=== PATIENT | male | born 1995 | race Caucasian/White ===

== ENCOUNTER 2018-11-21 12:40 | Emergency (ER) | payer BC ==
[~2018-11-21] VITALS: Ht 175.3 cm; Wt 67.3 kg
[2018-11-21 13:11] VITALS: BP 145/71
[2018-11-21] MEDS ORDERED: buprenorphine/naloxone 8mg/2mg SL tablet SL STA (13:48)
== END 2018-11-21 14:12 | disposition home or self-care (01) ==
LOC: ER 12:41
DX: F11.20 Opioid dependence, uncomplicated (principal); L98.9 Disorder of the skin and subcutaneous tissue, unspecified; F17.200 Nicotine dependence, unspecified, uncomplicated; F12.90 Cannabis use, unspecified, uncomplicated; F15.90 Other stimulant use, unspecified, uncomplicated; Z56.0 Unemployment, unspecified
CPT/HCPCS: 99282

== ENCOUNTER 2021-10-12 22:52 | Inpatient (IN) | payer MEDICAID ==
[~2021-10-12] VITALS: Ht 172.7 cm; Wt 79.4 kg
[~2021-10-12 22:52] MED LIST: temazepam 15mg capsule PO PRN
[2021-10-12 23:34] LABS: BASOPHILS % (AUTO) 0.1 % (0-1); EOSINOPHILS # (AUTO) 0.1 X10'3 (0-0.9); EOSINOPHILS % (AUTO) 0.7 % (0-6); HEMATOCRIT 35.5 % (42.0-52.0); HEMOGLOBIN 11.7 g/dl (14.0-17.9); LYMPHOCYTES # (AUTO) 1.7 X10'3 (1.1-4.8); MEAN CORPUSCULAR HEMOGLOBIN 27.1 PG (27.0-31.0); MEAN CORPUSCULAR HGB CONC 32.9 g/dL (33.0-36.5); MEAN CORPUSCULAR VOLUME 82.4 FL (78-98); MEAN PLATELET VOLUME 7.9 FL (7.4-10.4); MONOCYTES # (AUTO) 1.7 X10'3 (0-0.9); MONOCYTES % (AUTO) 8.8 % (2-12); NEUTROPHILS # (AUTO) 15.7 X10'3 (1.8-7.7); NEUTROPHILS % (AUTO) 81.4 % (42-75); PLATELET COUNT 273 X10'3 (140-440); RED BLOOD COUNT 4.31 X10'6 (4.70-6.10); RED CELL DISTRIBUTION WIDTH 19.5 % (11.5-14.5); WHITE BLOOD COUNT 19.3 X10'3 (4.5-11.0)
[2021-10-12] MEDS ORDERED: normal saline 1000ML IV soln IV ONE (23:35)
[2021-10-12] MEDS ORDERED: vancomycin/NS 1 GM ADD-VANTAGE 250 ML IV ONE (23:35)
[2021-10-12] MEDS ORDERED: dextrose 5%-1/2 normal saline 1,000 ML IV SCH (23:50)
[2021-10-12] MEDS ORDERED: diphenhydrAMINE 25mg capsule PO PRN (23:50)
[2021-10-12] MEDS ORDERED: diphenhydrAMINE 50 mg/ml inj IV PRN (23:50)
[2021-10-12] MEDS ORDERED: ondansetron 4mg rapidly disintigrating tab PO PRN (23:50)
[2021-10-12] MEDS ORDERED: ondansetron/PF 4mg/2ml inj IV PRN (23:50)
[2021-10-12] MEDS ORDERED: magnesium hydroxide 30ml (MOM) UD suspension PO PRN (23:50)
[2021-10-12] MEDS ORDERED: bisacodyl 10mg suppository rectal RC PRN (23:50)
[2021-10-12] MEDS ORDERED: acetaminophen 650mg rectal suppository RC PRN (23:50)
[2021-10-12] MEDS ORDERED: mag hydrox/Alum hydrox/simeth 30ml oral suspension PO PRN (23:50)
[2021-10-12] MEDS ORDERED: acetaminophen 325mg tablet PO PRN ×2 (23:50)
[2021-10-12] MEDS ORDERED: morphine 2 MG/ML inj. syringe IV PRN (23:50)
[2021-10-12 23:51] LABS: ALANINE AMINOTRANSFERASE 71 U/L (12-78); ALBUMIN 1.7 G/DL (3.4-5.0); ALBUMIN/GLOBULIN RATIO 0.4 (1.1-1.5); ALKALINE PHOSPHATASE 116 IU/L (46-116); ANION GAP 10 (8-16); ASPARTATE AMINO TRANSFERASE 79 U/L (10-37); BILIRUBIN,TOTAL 1.5 MG/DL (0.1-1.0); BLOOD UREA NITROGEN 20 MG/DL (7-18); BUN/CREATININE RATIO 19.8 (5.4-32.0); CALCIUM 7.6 MG/DL (8.5-10.1); CHLORIDE 101 MMOL/L (99-107); CREATININE 1.01 MG/DL (0.60-1.10); GLUCOSE 100 MG/DL (70-104); POTASSIUM 3.6 MMOL/L (3.5-5.1); SODIUM 141 MMOL/L (135-145); TOTAL CARBON DIOXIDE 29.8 MMOL/L (24-32); TOTAL PROTEIN 6.5 G/DL (6.4-8.2); eGFR 89 ML/MIN
[2021-10-13] MEDS ORDERED: nicotine 21mg patch - 24 hr TD ONE (00:05)
[2021-10-13 00:21] LABS: MAGNESIUM 1.6 MG/DL (1.5-2.4); PHOSPHORUS 1.7 MG/DL (2.3-4.5)
[2021-10-13 00:24] LABS: HEMOGLOBIN A1C 6.4 % (4.5-6.2)
[2021-10-13 00:36] LABS: APTT 30 SECONDS (22-32); D-DIMER > 35.20 MG/L FEU (0-0.50)
[2021-10-13] MEDS ORDERED: digoxin 250mcg/ml 2ml ampule IV ONE (00:45)
[2021-10-13] MEDS: DOBUTamine-DoBUTrex 500mg/D5W 250 ML IV SCH (00:45)
[2021-10-13 00:47] LABS: ANISOCYTOSIS 2+; PLATELET ESTIMATE NORMAL
[2021-10-13 00:53] LABS: CHOL/HDL RATIO 5.3 (0.00-4.99); CHOLESTEROL 79 MG/DL (0-200); CREATINE KINASE 72 U/L (39-308); HDL CHOLESTEROL 15 MG/DL (35-60); LDL CHOLESTEROL 49 MG/DL (50-100); LIPASE 479 U/L (73-393); TRIGLYCERIDES 87 MG/DL (20-135)
[2021-10-13 00:58] LABS: ETHANOL < 0.010 GM/DL (0.0-0.010)
[2021-10-13] MEDS: morphine 2 MG/ML inj. syringe IV PRN ×3 (01:14→12:48)
[2021-10-13] MEDS ORDERED: sodium phosphate inj. 30 MMOL in dextrose 5%-water 250 ML IV PRN (01:30)
[2021-10-13] MEDS ORDERED: sodium phosphate inj. 15 MMOL in dextrose 5%-water 250 ML IV PRN (01:30)
[2021-10-13] MEDS ORDERED: Neutra Phos packet PO PRN (01:30)
[2021-10-13] MEDS ORDERED: iohexol 350MG/ML 100ml bottle IV ONE (01:38)
[2021-10-13] MEDS ORDERED: glucagon, human recombinant 1mg kit SUBCUT PRN (02:00)
[2021-10-13] MEDS ORDERED: MESSAGE TO PHARMACY PO ONE (02:00)
[2021-10-13] MEDS ORDERED: dextrose 50%-water 50ml dispensing syringe IV PRN ×2 (02:00)
[2021-10-13] MEDS ORDERED: DEXTROSE 15 GM of carb/4 tabs (each vial/BOTTLE has 4 tablets) PO PRN ×2 (02:00)
[2021-10-13] MEDS ORDERED: insulin Lispro (HumaLOG) vial - multi-dose SQ SCH (02:00)
[2021-10-13 02:41] LABS: ABG BASE EXCESS 2.6 mmol/L (-2.0-2.0); ABG HCO3 24.8 mmol/L (22.0-26.0); ABG OXYGEN SATURATION 95.4 % (94-97); ABG PCO2 (T) 30.7 mmHg (35.0-48.0); ABG PO2 (T) 69.6 mmHg (75.0-100.0); ALLEN'S TEST POSITIVE; FCOHb 1.4 % (0.0-3.9); FMetHb 0.2 % (0.0-1.5); FO2Hb 93.9 % (94-97); PATIENT TEMPERATURE 37.1; TOTAL HEMOGLOBIN 11.2 G/dl (14.0-18.0)
[2021-10-13] MEDS: ipratropium/albuterol 3ml nebule NEB SCH ×6 (02:47→23:09)
[2021-10-13] MEDS ORDERED: NO HOME MEDS (04:52)
[2021-10-13 05:30] VITALS: BP 98/47
[2021-10-13 06:00] VITALS: BP 107/46
[2021-10-13 06:13] LABS: COLOR,URINE YELLOW (Yellow); GLUCOSE, URINE NEGATIVE (Neg); KETONES,URINE NEGATIVE (Neg); LEUKOCYTE ESTERASE ,URINE NEGATIVE (Neg); NITRITES, URINE NEGATIVE (Neg); OCCULT BLOOD,URINE SMALL (Neg); PROTEIN,URINE TRACE mg/dl (Neg)
[2021-10-13 06:17] LABS: CLARITY,URINE SLIGHTLY CLOUDY (Clear); UA COLLECTION TYPE CLN CATCH MIDSTREAM
[2021-10-13 06:22] LABS: BACTERIA,URINE FEW /HPF (Neg); SQUAMOUS EPITHELIAL CELL,UR NONE SEEN /LPF (FEW)
[2021-10-13 06:23] LABS: WBC,URINE 0-4 /HPF (0-4)
[2021-10-13 07:03] LABS: BASOPHILS % (AUTO) 0.2 % (0-1); EOSINOPHILS # (AUTO) 0.1 X10'3 (0-0.9); EOSINOPHILS % (AUTO) 0.5 % (0-6); HEMATOCRIT 31.9 % (42.0-52.0); HEMOGLOBIN 10.2 g/dl (14.0-17.9); LYMPHOCYTES # (AUTO) 1.3 X10'3 (1.1-4.8); LYMPHOCYTES % (AUTO) 7.2 % (21-51); MEAN CORPUSCULAR HEMOGLOBIN 26.5 PG (27.0-31.0); MEAN CORPUSCULAR VOLUME 82.7 FL (78-98); MEAN PLATELET VOLUME 8.1 FL (7.4-10.4); MONOCYTES # (AUTO) 1.6 X10'3 (0-0.9); MONOCYTES % (AUTO) 8.5 % (2-12); NEUTROPHILS # (AUTO) 15.2 X10'3 (1.8-7.7); NEUTROPHILS % (AUTO) 83.6 % (42-75); PLATELET COUNT 231 X10'3 (140-440); RED BLOOD COUNT 3.85 X10'6 (4.70-6.10); RED CELL DISTRIBUTION WIDTH 19.3 % (11.5-14.5); WHITE BLOOD COUNT 18.2 X10'3 (4.5-11.0)
[2021-10-13] MEDS: lisinopril 2.5mg tablet PO SCH (08:00)
[2021-10-13] MEDS ORDERED: vancomycin/NS 1 GM ADD-VANTAGE 250 ML IV SCH (08:00)
[2021-10-13] MEDS: docusate sod 100mg capsule PO SCH ×2 (08:00→20:00)
[2021-10-13] MEDS: furosemide 20 MG/2 ML vial IV SCH ×2 (08:00→21:06)
[2021-10-13] MEDS: heparin, porcine 5000 units/ml vial SQ SCH ×2 (08:00→21:05)
[2021-10-13] MEDS ORDERED: sodium phosphate inj. 15 MMOL in dextrose 5%-water 250 ML IV ONE (08:30)
[2021-10-13 08:38] LABS: PLATELET ESTIMATE NORMAL; POLYCHROMASIA FEW
[2021-10-13 08:39] LABS: ANISOCYTOSIS 2+; ELLIPTOCYTES FEW; HYPOCHROMASIA 1+; STOMATOCYTES FEW; TEAR DROP CELLS FEW
[2021-10-13] MEDS: spironolactone 25 MG tablet PO SCH (10:00)
[2021-10-13] MEDS: carVEDilol 3.125mg tablet PO SCH ×2 (10:02→21:06)
[2021-10-13] MEDS: HYDROcodone/acetaminophen 5mg/325mg tablet PO PRN ×3 (10:02→21:40)
[2021-10-13] MEDS: pantoprazole 40mg Tablet.DR PO SCH (10:02)
--- NOTE | 2021-10-13 10:28 | NUR ---
DM consult re: "new DM". Patient with A1c 6.4%; Diabetes is diagnosed at an A1c of greater than or equal to 6.5% per ADA guidelines. Pt admit for sepsis, PNA, PE, and BLE cellulitis with anasarca and ascites and h/o CHF with EF 20% per H&P. Currently on a regular diet, pending documentation of PO intake. No documented BM though pt receiving routine bowel care. Will continue to follow closely and make recommendations as appropriate pending trends in PO intake. Recommendations: 1) Continue regular diet 2) Monitor need for ONS/additional protein 3) Routine bowel care 4) Weekly scaled weights Addendum: 10/13/21 at [address] Amended: Links added.
[2021-10-13 11:00] VITALS: BP 122/75
[2021-10-13] MEDS: piperacillin/tazo 4.5gm/100ml 100 ML IV SCH ×3 (11:00→16:00)
[2021-10-13] MEDS: VANCOmycin 1250MG/NS 250ml Bag 250 ML IV SCH (13:00)
[2021-10-13 15:00] VITALS: BP 110/50
[2021-10-13 19:00] VITALS: BP 105/45
[2021-10-13 22:00] VITALS: BP 127/74
[2021-10-14] VITALS (16 sets, daily range): BP systolic 109–134; BP diastolic 52–78
[2021-10-14] MEDS: VANCOmycin 1250MG/NS 250ml Bag 250 ML IV SCH (00:40)
[2021-10-14] MEDS: piperacillin/tazo 4.5gm/100ml 100 ML IV SCH ×2 (00:40→09:08)
[2021-10-14] MEDS: morphine 2 MG/ML inj. syringe IV PRN ×2 (01:49→11:25)
[2021-10-14] MEDS: ipratropium/albuterol 3ml nebule NEB SCH ×5 (03:10→19:13)
[2021-10-14] MEDS: HYDROcodone/acetaminophen 5mg/325mg tablet PO PRN (04:23)
[2021-10-14 07:40] LABS: BASOPHILS # (AUTO) 0.1 X10'3 (0-0.2); BASOPHILS % (AUTO) 0.5 % (0-1); EOSINOPHILS # (AUTO) 0.4 X10'3 (0-0.9); EOSINOPHILS % (AUTO) 2.4 % (0-6); HEMATOCRIT 31.4 % (42.0-52.0); HEMOGLOBIN 10.1 g/dl (14.0-17.9); LYMPHOCYTES # (AUTO) 1.2 X10'3 (1.1-4.8); LYMPHOCYTES % (AUTO) 8.2 % (21-51); MEAN CORPUSCULAR HEMOGLOBIN 26.8 PG (27.0-31.0); MEAN CORPUSCULAR HGB CONC 32.1 g/dL (33.0-36.5); MEAN CORPUSCULAR VOLUME 83.6 FL (78-98); MEAN PLATELET VOLUME 7.8 FL (7.4-10.4); MONOCYTES # (AUTO) 1.4 X10'3 (0-0.9); MONOCYTES % (AUTO) 9.2 % (2-12); NEUTROPHILS # (AUTO) 11.8 X10'3 (1.8-7.7); NEUTROPHILS % (AUTO) 79.7 % (42-75); PLATELET COUNT 284 X10'3 (140-440); RED BLOOD COUNT 3.76 X10'6 (4.70-6.10); RED CELL DISTRIBUTION WIDTH 19.7 % (11.5-14.5); WHITE BLOOD COUNT 14.8 X10'3 (4.5-11.0)
[2021-10-14] MEDS: furosemide 20 MG/2 ML vial IV SCH ×2 (09:06→20:33)
[2021-10-14] MEDS: docusate sod 100mg capsule PO SCH ×2 (09:07→20:34)
[2021-10-14] MEDS: spironolactone 25 MG tablet PO SCH (09:07)
[2021-10-14] MEDS: HYDROcodone/acetaminophen 10/325mg tab PO PRN ×2 (09:07→18:50)
[2021-10-14] MEDS: pantoprazole 40mg Tablet.DR PO SCH (09:07)
[2021-10-14] MEDS: heparin, porcine 5000 units/ml vial SQ SCH ×2 (09:07→20:33)
[2021-10-14] MEDS: lisinopril 2.5mg tablet PO SCH (09:08)
[2021-10-14] MEDS: carVEDilol 3.125mg tablet PO SCH ×2 (09:08→20:34)
--- NOTE | 2021-10-14 10:07 | NUR ---
Client's c/o pain is continuous.
[2021-10-14] MEDS ORDERED: VANCOMYCIN LEVEL IV ONE (12:30)
[2021-10-14] MEDS ORDERED: LIDOcaine 1% (10mg/ml)w/preservative inj. 20ml MDV ONE (15:21)
--- NOTE | 2021-10-14 16:28 | NUR ---
Antibiotics delayed due to chest tube placement procedure
--- NOTE | 2021-10-14 17:45 | NUR ---
Mr Palumbo has been assessed as indicated. He has been successfully treated for pain 2x this shift. he has had Bilat chest tubes placed. H tolerated the procedure well. and both are draining SS liquid. He has had visitors at the bedside most of the day and is resting quietly at this time
--- NOTE | 2021-10-14 18:15 | NUR ---
Problems reprioritized. Patient report given, questions answered & plan of care reviewed with KATHIA.
[2021-10-15] VITALS (14 sets, daily range): BP systolic 102–134; BP diastolic 52–81
[2021-10-15] MEDS: ipratropium/albuterol 3ml nebule NEB SCH ×7 (00:16→23:21)
[2021-10-15] MEDS: HYDROcodone/acetaminophen 10/325mg tab PO PRN ×4 (00:44→21:17)
[2021-10-15] MEDS: DOBUTamine-DoBUTrex 500mg/D5W 250 ML IV SCH (00:53)
[2021-10-15] MEDS: piperacillin/tazo 4.5gm/100ml 100 ML IV SCH ×2 (01:09→10:16)
[2021-10-15 06:21] LABS: BASOPHILS # (AUTO) 0.1 X10'3 (0-0.2); BASOPHILS % (AUTO) 0.7 % (0-1); EOSINOPHILS # (AUTO) 0.3 X10'3 (0-0.9); EOSINOPHILS % (AUTO) 2.7 % (0-6); HEMATOCRIT 32.2 % (42.0-52.0); HEMOGLOBIN 10.2 g/dl (14.0-17.9); LYMPHOCYTES # (AUTO) 1.4 X10'3 (1.1-4.8); LYMPHOCYTES % (AUTO) 11.6 % (21-51); MEAN CORPUSCULAR HEMOGLOBIN 26.2 PG (27.0-31.0); MEAN CORPUSCULAR HGB CONC 31.8 g/dL (33.0-36.5); MEAN CORPUSCULAR VOLUME 82.6 FL (78-98); MEAN PLATELET VOLUME 7.5 FL (7.4-10.4); MONOCYTES # (AUTO) 1.4 X10'3 (0-0.9); NEUTROPHILS # (AUTO) 9.1 X10'3 (1.8-7.7); PLATELET COUNT 314 X10'3 (140-440); RED CELL DISTRIBUTION WIDTH 19.3 % (11.5-14.5); WHITE BLOOD COUNT 12.3 X10'3 (4.5-11.0)
[2021-10-15] MEDS: pantoprazole 40mg Tablet.DR PO SCH (08:10)
[2021-10-15] MEDS: docusate sod 100mg capsule PO SCH ×2 (08:11→20:57)
[2021-10-15] MEDS: carVEDilol 3.125mg tablet PO SCH ×2 (08:12→20:57)
[2021-10-15] MEDS: lisinopril 2.5mg tablet PO SCH (08:14)
[2021-10-15] MEDS: spironolactone 25 MG tablet PO SCH (08:16)
[2021-10-15] MEDS: heparin, porcine 5000 units/ml vial SQ SCH ×2 (08:18→20:58)
--- NOTE | 2021-10-15 08:24 | NUR ---
Medication administration supervised by Clinical Machine Baster
[2021-10-15] MEDS: furosemide 20 MG/2 ML vial IV SCH ×2 (10:16→20:57)
[2021-10-15 10:17] LABS: ANISOCYTOSIS 2+; PLATELET ESTIMATE NORMAL
--- NOTE | 2021-10-15 11:38 | NUR ---
Charting byemily SCHWARZ reviewed by Oc Matute RN
--- NOTE | 2021-10-15 11:41 | NUR ---
Patient states BM yesterday 10/14/21. Not observed by me.
--- NOTE | 2021-10-15 11:51 | NUR ---
RECOMMEND: 1. Daily bathing with no rinse skin cleanser. 2. Cream/Lotion to be applied to skin after bathing. 3. Yoko care Q shift and prn soiling followed by with Barrier Cream. 4. Turn patient Q 1-2 hrs and reposition with pillows. 5. Float heels to offload pressure.
--- NOTE | 2021-10-15 13:00 | NUR ---
Met with patient in regards to substance use and to see if patient wanted treatment options. Patient would like to get established with [facility] and get started on outpatient treatment. I will help patient get appointment and I gave patient my card to call me with any questions.
[2021-10-15] MEDS: CefTRIAXone 2gm/NS 100ml IVPB 100 ML IV SCH (14:39)
[2021-10-15] MEDS: mupirocin 2% ointment 22GM TP SCH (16:47)
[2021-10-15] MEDS: morphine 2 MG/ML inj. syringe IV PRN (16:48)
--- NOTE | 2021-10-15 16:52 | NUR ---
Charting by Kaila SCHWARZ reviewed by Oc Matute RN
--- NOTE | 2021-10-15 17:24 | NUR ---
Patient stated his last bowel movement was on 10/14/21, this was not witnessed by me.
--- NOTE | 2021-10-15 18:26 | NUR ---
Mr Palumbo has been assessed as indicated. he has been successfully treated for pain several times this shift. his mother has been at the bedside the entire shift. Bilat chest tubes drain serous fluids and have been flushed by IR staff with 10ml each. all wounds have been dressed per wound nurse orders. Newly ordered antibiotics have been started. He states that he would like to wash himself up before bed tonight. He is presently resting quietly
--- NOTE | 2021-10-15 18:49 | NUR ---
Problems reprioritized. Patient report given, questions answered & plan of care reviewed with JENNIFER.
--- NOTE | 2021-10-15 23:59 | NUR ---
Patient in room PCU 3012. I have received report from Bren DUARTE, and had the opportunity to ask questions and assume patient care.
[2021-10-16] MEDS: morphine 2 MG/ML inj. syringe IV PRN ×4 (01:04→18:20)
[2021-10-16] MEDS ORDERED: VANCOMYCIN LEVEL IV ONE (02:30)
[2021-10-16 02:54] LABS: BASOPHILS # (AUTO) 0.2 X10'3 (0-0.2); BASOPHILS % (AUTO) 1.2 % (0-1); EOSINOPHILS # (AUTO) 0.3 X10'3 (0-0.9); EOSINOPHILS % (AUTO) 2.2 % (0-6); HEMATOCRIT 31.4 % (42.0-52.0); HEMOGLOBIN 10.3 g/dl (14.0-17.9); LYMPHOCYTES # (AUTO) 1.8 X10'3 (1.1-4.8); LYMPHOCYTES % (AUTO) 13.4 % (21-51); MEAN CORPUSCULAR HEMOGLOBIN 27.1 PG (27.0-31.0); MEAN CORPUSCULAR HGB CONC 32.7 g/dL (33.0-36.5); MEAN CORPUSCULAR VOLUME 82.9 FL (78-98); MONOCYTES # (AUTO) 1.2 X10'3 (0-0.9); MONOCYTES % (AUTO) 9.4 % (2-12); NEUTROPHILS # (AUTO) 9.8 X10'3 (1.8-7.7); NEUTROPHILS % (AUTO) 73.8 % (42-75); PLATELET COUNT 404 X10'3 (140-440); RED BLOOD COUNT 3.79 X10'6 (4.70-6.10); RED CELL DISTRIBUTION WIDTH 18.9 % (11.5-14.5); WHITE BLOOD COUNT 13.2 X10'3 (4.5-11.0)
[2021-10-16] MEDS: ipratropium/albuterol 3ml nebule NEB SCH ×6 (02:58→23:32)
[2021-10-16 03:43] LABS: HIV ANTIBODY 1&2 RAPID NON-REACTIVE (Neg)
--- NOTE | 2021-10-16 04:00 | NUR ---
Patient with ST at 130 to 140 HR inform MD and Dobutamin drip decrease to 2.5 ml ,R 32 pain med admins , continue to monitor pt. mica level 20 md notify.
[2021-10-16 04:01] LABS: ANISOCYTOSIS 2+; PLATELET ESTIMATE NORMAL
[2021-10-16 04:02] LABS: TARGET CELLS FEW
[2021-10-16 04:03] LABS: HYPOCHROMASIA 1+; TEAR DROP CELLS FEW
[2021-10-16 04:04] LABS: STOMATOCYTES FEW
[2021-10-16] MEDS: HYDROcodone/acetaminophen 10/325mg tab PO PRN ×3 (04:24→17:23)
[2021-10-16 06:00] VITALS: BP 121/81
--- NOTE | 2021-10-16 06:10 | NUR ---
Patient in room PCU 3012. I have received report from Vy DUARTE and had the opportunity to ask questions and assume patient care.
--- NOTE | 2021-10-16 06:35 | NUR ---
Problems reprioritized. Patient report given,to Sara, questions answered & plan of care reviewed with .
[2021-10-16 06:43] LABS: BLOOD UREA NITROGEN 16 MG/DL (7-18); CREATININE 0.95 MG/DL (0.60-1.10); eGFR > 90 ML/MIN
[2021-10-16] MEDS: furosemide 20 MG/2 ML vial IV SCH ×2 (08:53→19:16)
[2021-10-16] MEDS: heparin, porcine 5000 units/ml vial SQ SCH ×2 (08:53→19:17)
[2021-10-16] MEDS: mupirocin 2% ointment 22GM TP SCH (08:54)
[2021-10-16] MEDS: spironolactone 25 MG tablet PO SCH (08:56)
[2021-10-16] MEDS: docusate sod 100mg capsule PO SCH ×2 (08:56→19:17)
[2021-10-16] MEDS: carVEDilol 3.125mg tablet PO SCH ×2 (08:57→19:17)
[2021-10-16] MEDS: lisinopril 2.5mg tablet PO SCH (08:57)
[2021-10-16] MEDS: pantoprazole 40mg Tablet.DR PO SCH (09:00)
[2021-10-16] MEDS: CefTRIAXone 2gm/NS 100ml IVPB 100 ML IV SCH (10:02)
[2021-10-16] MEDS ORDERED: tPA-cathflo 2 MG/2 ml IV flush ONE ×2 (10:20→10:21)
[2021-10-16 10:54] LABS: ALBUMIN 1.4 G/DL (3.4-5.0); ANION GAP 8 (8-16); BLOOD UREA NITROGEN 16 MG/DL (7-18); BUN/CREATININE RATIO 18.8 (5.4-32.0); CALCIUM 7.7 MG/DL (8.5-10.1); CHLORIDE 102 MMOL/L (99-107); CREATININE 0.85 MG/DL (0.60-1.10); GLUCOSE 111 MG/DL (70-104); POTASSIUM 3.9 MMOL/L (3.5-5.1); SODIUM 139 MMOL/L (135-145); eGFR > 90 ML/MIN
[2021-10-16 11:00] VITALS: BP 113/54
--- NOTE | 2021-10-16 12:03 | NUR ---
Reassessment: Pt continues on Regular diet w/ 100% intake of meals which meets est energy needs but only partially meets est protein needs. Pt could benefit from double protein BID to ensure increased protein needs are met. LBM 10/14 receiving routine colace. Will continue to monitor and make recommendations as appropriate. Recommendations: 1) Continue regular diet 2) Double Protein BID BD 3) Routine bowel care 4) Weekly scaled weights Addendum: 10/16/21 at [address] Amended: Links added.
[2021-10-16 15:00] VITALS: BP 115/78
--- NOTE | 2021-10-16 15:25 | NUR ---
Paged Dr. Chappell regarding pt in pain and needing a one time dose of something. PAGER ID: [phone] MESSAGE: [phone], Linwood Martínez. Pt is in a lot of pain from the TPA. Can we get a one time order for IV pain med? I gave him morphine 2mg 2 hours ago, but he is still in excruciating pain. Isabella [facility] 5356.
[2021-10-16] MEDS ORDERED: morphine 2 MG/ML inj. syringe IV ONE (15:30)
--- NOTE | 2021-10-16 15:55 | NUR ---
1500 svn refused due to pain
--- NOTE | 2021-10-16 16:36 | NUR ---
Pt was caught vaping in his room this morning by nursing staff. I confiscated 2 vapes, the pts family said they would hold on to them and not give them to him. He was then caught again later by respiratory, I went in and told the pt I knew he had them and that I needed to take them and put them away where he couldn't have access to them. He agreed to let me look through his bags, and I found one of them. I said I knew he had the other one still and he denied it. I asked him if I could look in his shorts he was wearing and he said no. I then talked to my charge and nursing unit coordinator and they called security. Security talked to him and he denied having another vape. We then all went in and told the patient we were going to check the pt, that it is illegal to have it in the hospital and he reluctantly agreed. We then found it in his bed and removed it from the room and placed them both in his chart.
--- NOTE | 2021-10-16 17:27 | NUR ---
Paged Dr. Chappell regarding HR trending up in the 130-140s. PAGER ID: [phone] MESSAGE: [id number], Linwood Martínez. Pts HR is trending up. Starting at 1500 it was 130, it is now 140. Before 3pm it was less than 120. Isabella [facility] [id number].
[2021-10-16] MEDS ORDERED: metoprolol tartrate 1mg/ml inj IV ONE (17:30)
[2021-10-16 18:00] VITALS: BP 146/86
--- NOTE | 2021-10-16 18:10 | NUR ---
Problems reprioritized. Patient report given, questions answered & plan of care reviewed with Angela DUARTE, pt stable but in a lot of pain, wants chest tubes removed as soon as possible..
--- NOTE | 2021-10-16 18:44 | NUR ---
PAGER ID: [phone] MESSAGE: [phone], Linwood Martínez. Pt wants to leave AMA if the chest tubes don't come out. He says he cant stand the pain any longer. He wants to have a conversation with you before you leave. Angela [facility] 8012.
--- NOTE | 2021-10-16 18:58 | NUR ---
MD Chappell called and spoke with patient via telephone regarding his c/o pain r/t his bilateral chest tubes. gave orders to start .5 mg Dilaudid IV PRN Q4H for pain. Patient is in agreement with the plan at this time.
[2021-10-16] MEDS: HYDROmorphone inj. 0.5 MG/0.5 ML DISP.SYRIN IV PRN (19:22)
[2021-10-17] MEDS: HYDROmorphone inj. 0.5 MG/0.5 ML DISP.SYRIN IV PRN ×6 (01:18→23:21)
[2021-10-17 02:26] VITALS: BP 105/46
[2021-10-17] MEDS: ipratropium/albuterol 3ml nebule NEB SCH ×6 (02:35→23:42)
[2021-10-17] MEDS: HYDROcodone/acetaminophen 10/325mg tab PO PRN ×2 (04:31→19:11)
[2021-10-17 06:00] VITALS: BP 116/71
--- NOTE | 2021-10-17 06:21 | NUR ---
Patient in room PCU 3012. I have received report from Mariana DUARTE and had the opportunity to ask questions and assume patient care.
[2021-10-17 06:43] LABS: BASOPHILS # (AUTO) 0.1 X10'3 (0-0.2); BASOPHILS % (AUTO) 0.7 % (0-1); EOSINOPHILS # (AUTO) 0.2 X10'3 (0-0.9); EOSINOPHILS % (AUTO) 1.3 % (0-6); HEMATOCRIT 30.7 % (42.0-52.0); HEMOGLOBIN 9.9 g/dl (14.0-17.9); LYMPHOCYTES # (AUTO) 1.5 X10'3 (1.1-4.8); LYMPHOCYTES % (AUTO) 10.5 % (21-51); MEAN CORPUSCULAR HEMOGLOBIN 26.8 PG (27.0-31.0); MEAN CORPUSCULAR HGB CONC 32.4 g/dL (33.0-36.5); MEAN CORPUSCULAR VOLUME 82.6 FL (78-98); MEAN PLATELET VOLUME 7.5 FL (7.4-10.4); MONOCYTES # (AUTO) 1.8 X10'3 (0-0.9); MONOCYTES % (AUTO) 12.4 % (2-12); NEUTROPHILS # (AUTO) 11.1 X10'3 (1.8-7.7); NEUTROPHILS % (AUTO) 75.1 % (42-75); PLATELET COUNT 419 X10'3 (140-440); RED BLOOD COUNT 3.72 X10'6 (4.70-6.10); RED CELL DISTRIBUTION WIDTH 18.9 % (11.5-14.5); WHITE BLOOD COUNT 14.8 X10'3 (4.5-11.0)
[2021-10-17 06:54] LABS: ALBUMIN 1.3 G/DL (3.4-5.0); ANION GAP 6 (8-16); BLOOD UREA NITROGEN 16 MG/DL (7-18); BUN/CREATININE RATIO 21.9 (5.4-32.0); CALCIUM 7.4 MG/DL (8.5-10.1); CHLORIDE 103 MMOL/L (99-107); CREATININE 0.73 MG/DL (0.60-1.10); GLUCOSE 96 MG/DL (70-104); POTASSIUM 4.1 MMOL/L (3.5-5.1); SODIUM 136 MMOL/L (135-145); TOTAL CARBON DIOXIDE 26.6 MMOL/L (24-32); eGFR > 90 ML/MIN
[2021-10-17] MEDS: CefTRIAXone 2gm/NS 100ml IVPB 100 ML IV SCH (07:56)
[2021-10-17] MEDS: spironolactone 25 MG tablet PO SCH (07:57)
[2021-10-17] MEDS: lisinopril 2.5mg tablet PO SCH (07:58)
[2021-10-17] MEDS: docusate sod 100mg capsule PO SCH ×2 (07:59→19:11)
[2021-10-17] MEDS: pantoprazole 40mg Tablet.DR PO SCH (07:59)
[2021-10-17] MEDS: carVEDilol 3.125mg tablet PO SCH (07:59)
[2021-10-17] MEDS: furosemide 20 MG/2 ML vial IV SCH ×2 (07:59→19:10)
[2021-10-17] MEDS: heparin, porcine 5000 units/ml vial SQ SCH ×2 (08:00→19:11)
[2021-10-17] MEDS: mupirocin 2% ointment 22GM TP SCH (08:01)
[2021-10-17 11:00] VITALS: BP 113/61
--- NOTE | 2021-10-17 12:04 | NUR ---
Paged Dr. Chappell regarding whether we can get some ativan ordered for the patient. PAGER ID: [phone] MESSAGE: [phone], Linwood Martínez. Pt doesn't have any Ativan ordered, would you like to add some? Isabella [facility] 4736.
[2021-10-17] MEDS: morphine 2 MG/ML inj. syringe IV PRN (13:38)
[2021-10-17] MEDS ORDERED: chlorhexidine gluc 0.4% **topical ** 120ml btl. TP ONE (14:25)
[2021-10-17] MEDS ORDERED: LORazepam 2 mg/ml vial IV PRN (14:55)
[2021-10-17 15:00] VITALS: BP 116/73
[2021-10-17 18:00] VITALS: BP 101/56
--- NOTE | 2021-10-17 18:23 | NUR ---
Problems reprioritized. Patient report given, questions answered & plan of care reviewed with Nora RN, pt stable at transfer of care.
[2021-10-17] MEDS: carvedilol 6.25mg tablet PO SCH (19:11)
[2021-10-17 22:00] VITALS: BP 107/59
[2021-10-18 02:00] VITALS: BP 110/62
[2021-10-18] MEDS ORDERED: VANCOMYCIN LEVEL IV ONE (02:30)
[2021-10-18] MEDS: HYDROmorphone inj. 0.5 MG/0.5 ML DISP.SYRIN IV PRN ×2 (03:02→07:51)
[2021-10-18] MEDS: ipratropium/albuterol 3ml nebule NEB SCH ×3 (03:50→11:00)
--- NOTE | 2021-10-18 06:59 | NUR ---
Problems reprioritized. Patient report given, questions answered & plan of care reviewed with Bren DUARTE .
[2021-10-18 07:49] LABS: ALBUMIN 1.4 G/DL (3.4-5.0); ANION GAP 9 (8-16); BLOOD UREA NITROGEN 16 MG/DL (7-18); CALCIUM 8.3 MG/DL (8.5-10.1); CHLORIDE 102 MMOL/L (99-107); CREATININE 0.84 MG/DL (0.60-1.10); GLUCOSE 111 MG/DL (70-104); POTASSIUM 4.8 MMOL/L (3.5-5.1); SODIUM 139 MMOL/L (135-145); TOTAL CARBON DIOXIDE 27.6 MMOL/L (24-32); eGFR > 90 ML/MIN
[2021-10-18] MEDS: CefTRIAXone 2gm/NS 100ml IVPB 100 ML IV SCH (07:51)
[2021-10-18] MEDS: heparin, porcine 5000 units/ml vial SQ SCH (07:52)
[2021-10-18] MEDS: furosemide 20 MG/2 ML vial IV SCH (07:52)
[2021-10-18] MEDS: spironolactone 25 MG tablet PO SCH (07:53)
[2021-10-18 07:54] VITALS: BP_SYST 108
[2021-10-18] MEDS: lisinopril 2.5mg tablet PO SCH (07:54)
[2021-10-18] MEDS: pantoprazole 40mg Tablet.DR PO SCH (07:54)
[2021-10-18] MEDS: mupirocin 2% ointment 22GM TP SCH (08:00)
[2021-10-18] MEDS: carvedilol 6.25mg tablet PO SCH (08:00)
[2021-10-18] MEDS: docusate sod 100mg capsule PO SCH (08:00)
[2021-10-18 09:16] LABS: BASOPHILS # (AUTO) 0.1 X10'3 (0-0.2); BASOPHILS % (AUTO) 0.9 % (0-1); EOSINOPHILS # (AUTO) 0.2 X10'3 (0-0.9); EOSINOPHILS % (AUTO) 1.7 % (0-6); HEMATOCRIT 29.9 % (42.0-52.0); HEMOGLOBIN 9.5 g/dl (14.0-17.9); LYMPHOCYTES # (AUTO) 1.4 X10'3 (1.1-4.8); LYMPHOCYTES % (AUTO) 10.1 % (21-51); MEAN CORPUSCULAR HEMOGLOBIN 26.5 PG (27.0-31.0); MEAN CORPUSCULAR HGB CONC 31.9 g/dL (33.0-36.5); MEAN CORPUSCULAR VOLUME 83.1 FL (78-98); MEAN PLATELET VOLUME 8.1 FL (7.4-10.4); MONOCYTES # (AUTO) 1.3 X10'3 (0-0.9); MONOCYTES % (AUTO) 9.8 % (2-12); NEUTROPHILS # (AUTO) 10.6 X10'3 (1.8-7.7); NEUTROPHILS % (AUTO) 77.5 % (42-75); PLATELET COUNT 385 X10'3 (140-440); RED CELL DISTRIBUTION WIDTH 19.2 % (11.5-14.5); WHITE BLOOD COUNT 13.7 X10'3 (4.5-11.0)
[2021-10-18 09:44] LABS: ANISOCYTOSIS 2+; MICROCYTOSIS 1+; PLATELET ESTIMATE NORMAL; POIKILOCYTOSIS FEW; TARGET CELLS FEW
[2021-10-18] MEDS ORDERED: PANT40TA54 PO (09:47)
[2021-10-18] MEDS ORDERED: DOXY100C2 PO (09:47)
[2021-10-18] MEDS ORDERED: CARV6.253 PO (09:47)
[2021-10-18] MEDS ORDERED: POTA10TA37 PO (09:47)
[2021-10-18] MEDS ORDERED: FURO40TA4 PO (09:47)
[2021-10-18] MEDS ORDERED: LISI2.5T14 PO (09:47)
--- NOTE | 2021-10-18 11:56 | NUR ---
Patient IV was removed and intact and went over discharge packet answered all questions pertaining to medications.
== END 2021-10-18 11:00 | disposition home or self-care (01) | DRG 720 ==
LOC: ER 22:52 → ED HOLD 23:57 → EDBEDREQ 10-13 00:55 → EDBEDREQSVC 10-13 03:28 → PCU 3S 10-13 05:14
PROVIDERS: ADMIT Family Medicine; ATTEND Internal Medicine
PROC: B32T1ZZ Computerized Tomography (CT Scan) of Left Pulmonary Artery using Low Osmolar Contrast (ICD-10-PCS; 2021-10-13)
PROC: B3201ZZ Computerized Tomography (CT Scan) of Thoracic Aorta using Low Osmolar Contrast (ICD-10-PCS; 2021-10-13)
PROC: B32S1ZZ Computerized Tomography (CT Scan) of Right Pulmonary Artery using Low Osmolar Contrast (ICD-10-PCS; 2021-10-13)
PROC: 0W9B30Z Drainage of Left Pleural Cavity with Drainage Device, Percutaneous Approach (ICD-10-PCS; principal; 2021-10-14)
PROC: 0W9930Z Drainage of Right Pleural Cavity with Drainage Device, Percutaneous Approach (ICD-10-PCS; 2021-10-14)
PROC: 5A0935A Assistance with Respiratory Ventilation, Less than 24 Consecutive Hours, High Flow/Velocity Cannula (ICD-10-PCS; 2021-10-14)
PROC: 3E0L3GC Introduction of Other Therapeutic Substance into Pleural Cavity, Percutaneous Approach (ICD-10-PCS; 2021-10-16)
DX: A41.9 Sepsis, unspecified organism (principal); J86.9 Pyothorax without fistula; I50.23 Acute on chronic systolic (congestive) heart failure; J91.8 Pleural effusion in other conditions classified elsewhere; I42.9 Cardiomyopathy, unspecified; J18.9 Pneumonia, unspecified organism; R18.8 Other ascites; E88.09 Other disorders of plasma-protein metabolism, not elsewhere classified; D63.8 Anemia in other chronic diseases classified elsewhere; E83.39 Other disorders of phosphorus metabolism; Z20.822 Contact with and (suspected) exposure to COVID-19; F41.9 Anxiety disorder, unspecified; G89.29 Other chronic pain; L03.115 Cellulitis of right lower limb; L03.116 Cellulitis of left lower limb; F11.10 Opioid abuse, uncomplicated; F12.90 Cannabis use, unspecified, uncomplicated; F15.10 Other stimulant abuse, uncomplicated; F17.210 Nicotine dependence, cigarettes, uncomplicated; L30.9 Dermatitis, unspecified; Z56.0 Unemployment, unspecified; Z71.6 Tobacco abuse counseling; Z71.51 Drug abuse counseling and surveillance of drug abuser
CPT/HCPCS: 32557; 36415; 36600; 71045; 71250; 71275; 73700; 80048; 80053; 80061; 80202; 80320; 81001; 82550; 82565; 82803; 82948; 83036; 83605; 83690; 83735; 83880; 84100; 84145; 84443; 84484; 84520; 85008; 85018; 85025; 85379; 85610; 85730; 86703; 87040; 87081; 87635; 93306; 93970; 94640; 94760; 96374; 99285; G0378; J0696; J1160; J1170; J1250; J1644; J1815; J1940; J2060; J2270; J2543; J2997; J3370; J3490; J7030; J7060; Q9967

== ENCOUNTER 2021-11-19 12:25 | Inpatient (IN) | payer BC, MEDICAID ==
[~2021-11-19] VITALS: Ht 175.3 cm; Wt 86.4 kg
[~2021-11-19 12:25] MED LIST changes: +CARV6.253 PO; +LISI2.5T14 PO; +PANT40TA54 PO; +POTA10TA37 PO; -temazepam 15mg capsule PO PRN
[2021-11-19 14:04] LABS: BASOPHILS % (AUTO) 0.2 % (0-1); EOSINOPHILS # (AUTO) 0.3 X10'3 (0-0.9); EOSINOPHILS % (AUTO) 1.5 % (0-6); HEMATOCRIT 31.5 % (42.0-52.0); HEMOGLOBIN 9.8 g/dl (14.0-17.9); LYMPHOCYTES # (AUTO) 1.3 X10'3 (1.1-4.8); LYMPHOCYTES % (AUTO) 6.5 % (21-51); MEAN CORPUSCULAR HEMOGLOBIN 27.1 PG (27.0-31.0); MEAN CORPUSCULAR HGB CONC 31.3 g/dL (33.0-36.5); MEAN CORPUSCULAR VOLUME 86.6 FL (78-98); MEAN PLATELET VOLUME 7.8 FL (7.4-10.4); MONOCYTES # (AUTO) 0.7 X10'3 (0-0.9); MONOCYTES % (AUTO) 3.3 % (2-12); NEUTROPHILS # (AUTO) 17.8 X10'3 (1.8-7.7); NEUTROPHILS % (AUTO) 88.5 % (42-75); PLATELET COUNT 158 X10'3 (140-440); RED BLOOD COUNT 3.63 X10'6 (4.70-6.10); RED CELL DISTRIBUTION WIDTH 23.9 % (11.5-14.5); WHITE BLOOD COUNT 20.1 X10'3 (4.5-11.0)
[2021-11-19 14:12] LABS: ALANINE AMINOTRANSFERASE 230 U/L (12-78); ALBUMIN 1.6 G/DL (3.4-5.0); ALBUMIN/GLOBULIN RATIO 0.3 (1.1-1.5); ALKALINE PHOSPHATASE 145 IU/L (46-116); ANION GAP 5 (8-16); ASPARTATE AMINO TRANSFERASE 101 U/L (10-37); BILIRUBIN,TOTAL 2.1 MG/DL (0.1-1.0); BLOOD UREA NITROGEN 42 MG/DL (7-18); BUN/CREATININE RATIO 31.6 (5.4-32.0); CALCIUM 7.8 MG/DL (8.5-10.1); CHLORIDE 99 MMOL/L (99-107); CREATININE 1.33 MG/DL (0.60-1.10); GLUCOSE 105 MG/DL (70-104); POTASSIUM 4.6 MMOL/L (3.5-5.1); SODIUM 133 MMOL/L (135-145); TOTAL CARBON DIOXIDE 29.2 MMOL/L (24-32); TOTAL PROTEIN 6.8 G/DL (6.4-8.2); eGFR 65 ML/MIN
[2021-11-19 14:23] LABS: ANISOCYTOSIS 3+; PLATELET ESTIMATE NORMAL
[2021-11-19] MEDS ORDERED: furosemide 10 MG/1 ML 10ml inj IV ONE (15:55)
[2021-11-19] MEDS ORDERED: cefTRIAXone 1g/NS 100ml IVPB 100 ML IV ONE (15:55)
[2021-11-19] MEDS ORDERED: vancomycin/NS 1 GM ADD-VANTAGE 250 ML IV ONE (16:05)
[2021-11-19] MEDS ORDERED: mag hydrox/Alum hydrox/simeth 30ml oral suspension PO PRN (17:10)
[2021-11-19] MEDS ORDERED: magnesium 2GM in 50ml NS 50 ML IV PRN (17:10)
[2021-11-19] MEDS ORDERED: potassium CL 10mEq/100ml bag 100 ML IV PRN (17:10)
[2021-11-19] MEDS ORDERED: magnesium hydroxide 30ml (MOM) UD suspension PO PRN (17:10)
[2021-11-19] MEDS ORDERED: magnesium Cl slow-release 64mg tablet PO PRN (17:10)
[2021-11-19] MEDS ORDERED: potassium Cl 20 mEq SR tablet PO PRN (17:10)
[2021-11-19] MEDS ORDERED: magnesium 4gm in 100ml NS 100 ML IV PRN (17:10)
[2021-11-19] MEDS ORDERED: ondansetron/PF 4mg/2ml inj IV PRN (17:10)
[2021-11-19] MEDS ORDERED: acetaminophen 325mg tablet PO PRN (17:10)
[2021-11-19 17:30] LABS: POTASSIUM 4.6 MMOL/L (3.5-5.1)
[2021-11-19 17:49] LABS: URINE AMPHETAMINE SCREEN NEGATIVE (Neg); URINE BARBITUATE SCREEN NEGATIVE (Neg); URINE BENZODIAZEPINES SCREEN NEGATIVE (Neg); URINE CANNABINOID SCREEN POSITIVE (Neg); URINE COCAINE SCREEN NEGATIVE (Neg); URINE METHADONE SCREEN POSITIVE (Neg); URINE OPIATE SCREEN NEGATIVE (Neg); URINE PHENCYCLIDINE SCREEN NEGATIVE (Neg)
[2021-11-19] MEDS ORDERED: FURO40TA4 PO (18:10)
[2021-11-19] MEDS ORDERED: POTA-205 PO (18:17)
[2021-11-19] MEDS ORDERED: PANT-47 PO (18:17)
[2021-11-19] MEDS ORDERED: CARV6.253 PO (18:17)
[2021-11-19] MEDS ORDERED: LISI2.5T14 PO (18:17)
[2021-11-19] MEDS: K and/or MAG REPLACEMENT MC SCH (19:04)
[2021-11-19] MEDS ORDERED: POTA-188 PO (19:44)
[2021-11-19] MEDS: furosemide 40mg/4ml inj IV SCH (20:19)
[2021-11-19] MEDS: carvedilol 6.25mg tablet PO SCH (20:20)
[2021-11-19] MEDS: docusate sod 100mg capsule PO SCH (20:20)
[2021-11-19 22:00] VITALS: BP 113/66
[2021-11-19 22:36] VITALS: BP 110/65
[2021-11-19] MEDS: cefepime 1GM/NS ADD-VANTAGE 100 ML IV SCH (23:36)
[2021-11-20 02:00] VITALS: BP 102/48
[2021-11-20] MEDS: vancomycin/NS 1 GM ADD-VANTAGE 250 ML IV SCH ×2 (03:44→16:00)
[2021-11-20 05:45] LABS: BASOPHILS % (AUTO) 0.1 % (0-1); EOSINOPHILS # (AUTO) 0.1 X10'3 (0-0.9); EOSINOPHILS % (AUTO) 0.7 % (0-6); HEMATOCRIT 26.6 % (42.0-52.0); HEMOGLOBIN 8.5 g/dl (14.0-17.9); LYMPHOCYTES # (AUTO) 1.1 X10'3 (1.1-4.8); LYMPHOCYTES % (AUTO) 5.9 % (21-51); MEAN CORPUSCULAR HEMOGLOBIN 26.9 PG (27.0-31.0); MEAN PLATELET VOLUME 7.8 FL (7.4-10.4); MONOCYTES # (AUTO) 0.5 X10'3 (0-0.9); MONOCYTES % (AUTO) 2.9 % (2-12); NEUTROPHILS # (AUTO) 16.7 X10'3 (1.8-7.7); NEUTROPHILS % (AUTO) 90.4 % (42-75); PLATELET COUNT 125 X10'3 (140-440); RED BLOOD COUNT 3.17 X10'6 (4.70-6.10); RED CELL DISTRIBUTION WIDTH 23.8 % (11.5-14.5); WHITE BLOOD COUNT 18.4 X10'3 (4.5-11.0)
[2021-11-20 06:00] VITALS: BP 102/39
[2021-11-20 06:12] LABS: ALANINE AMINOTRANSFERASE 182 U/L (12-78); ALBUMIN 1.4 G/DL (3.4-5.0); ALBUMIN/GLOBULIN RATIO 0.3 (1.1-1.5); ALKALINE PHOSPHATASE 165 IU/L (46-116); ANION GAP 8 (8-16); ASPARTATE AMINO TRANSFERASE 80 U/L (10-37); BILIRUBIN,TOTAL 2.4 MG/DL (0.1-1.0); BLOOD UREA NITROGEN 33 MG/DL (7-18); BUN/CREATININE RATIO 26.8 (5.4-32.0); CALCIUM 7.2 MG/DL (8.5-10.1); CHLORIDE 100 MMOL/L (99-107); CREATININE 1.23 MG/DL (0.60-1.10); GLUCOSE 86 MG/DL (70-104); POTASSIUM 3.2 MMOL/L (3.5-5.1); SODIUM 137 MMOL/L (135-145); TOTAL CARBON DIOXIDE 29.3 MMOL/L (24-32); eGFR 71 ML/MIN
[2021-11-20] MEDS: K and/or MAG REPLACEMENT MC SCH ×2 (08:00→20:00)
[2021-11-20] MEDS: cefepime 1GM/NS ADD-VANTAGE 100 ML IV SCH ×2 (08:38→15:57)
[2021-11-20] MEDS: furosemide 40mg/4ml inj IV SCH ×2 (08:38→20:19)
[2021-11-20] MEDS: potassium chloride 10mEq ER tablet PO SCH (08:39)
[2021-11-20] MEDS: enoxaparin 40mg/0.4ml syringe SUBCUT SCH (08:39)
[2021-11-20] MEDS: lisinopril 2.5mg tablet PO SCH (08:39)
[2021-11-20] MEDS: carvedilol 6.25mg tablet PO SCH ×2 (08:39→20:20)
[2021-11-20] MEDS: docusate sod 100mg capsule PO SCH ×2 (08:39→20:20)
[2021-11-20] MEDS: pantoprazole 40mg Tablet.DR PO SCH (08:40)
--- NOTE | 2021-11-20 09:27 | NUR ---
Spoke to Maria Eugenia RASCON over at the methadone clinic, confirmed patient takes 70mg methadone daily. Dr. Chappell aware, methadone order is now in.
[2021-11-20] MEDS ORDERED: methadone 10mg tablet PO ONE (09:30)
[2021-11-20] MEDS: methadone 10mg tablet PO SCH (10:33)
[2021-11-20] MEDS ORDERED: METH-603 PO (10:41)
[2021-11-20 11:00] VITALS: BP 99/43
[2021-11-20 15:00] VITALS: BP 96/48
[2021-11-20] MEDS: potassium Cl 20 mEq SR tablet PO PRN ×2 (15:57→22:26)
--- NOTE | 2021-11-20 16:28 | NUR ---
Student documentation: I have reviewed and agree with all interventions, assessments performed and documented by Erika, acute care nursing assistant.
[2021-11-20 18:00] VITALS: BP 96/48
--- NOTE | 2021-11-20 18:18 | NUR ---
Patient in room PCU 3012A. I have received report from Mona DUARTE and had the opportunity to ask questions and assume patient care.
--- NOTE | 2021-11-20 18:28 | NUR ---
Problems reprioritized. Patient report given, questions answered & plan of care reviewed with Sydney RN.
[2021-11-20 22:00] VITALS: BP 104/62
[2021-11-21] MEDS: cefepime 1GM/NS ADD-VANTAGE 100 ML IV SCH ×3 (00:19→16:35)
[2021-11-21 02:00] VITALS: BP 105/53
[2021-11-21] MEDS ORDERED: VANCOMYCIN LEVEL IV ONE (03:30)
[2021-11-21] MEDS: vancomycin/NS 1 GM ADD-VANTAGE 250 ML IV SCH ×2 (04:11→18:05)
[2021-11-21 04:24] LABS: ALBUMIN 1.5 G/DL (3.4-5.0); ANION GAP 5 (8-16); BLOOD UREA NITROGEN 30 MG/DL (7-18); BUN/CREATININE RATIO 25.2 (5.4-32.0); CALCIUM 7.2 MG/DL (8.5-10.1); CHLORIDE 101 MMOL/L (99-107); CREATININE 1.19 MG/DL (0.60-1.10); GLUCOSE 82 MG/DL (70-104); POTASSIUM 3.1 MMOL/L (3.5-5.1); SODIUM 137 MMOL/L (135-145); TOTAL CARBON DIOXIDE 31.2 MMOL/L (24-32); TOTAL PROTEIN 6.5 G/DL (6.4-8.2); eGFR 74 ML/MIN
[2021-11-21 04:25] LABS: ALANINE AMINOTRANSFERASE 154 U/L (12-78); ALBUMIN/GLOBULIN RATIO 0.3 (1.1-1.5); ALKALINE PHOSPHATASE 155 IU/L (46-116); ASPARTATE AMINO TRANSFERASE 62 U/L (10-37)
[2021-11-21 04:37] LABS: VANCOMYCIN,TROUGH 20.3 UG/ML (6.0-14.0)
--- NOTE | 2021-11-21 05:10 | NUR ---
Pt has vanco trough of 20.3
[2021-11-21 06:00] VITALS: BP 98/52
--- NOTE | 2021-11-21 06:18 | NUR ---
Patient in room PCU 3012. I have received report from Sydney DUARTE and had the opportunity to ask questions and assume patient care.
--- NOTE | 2021-11-21 06:40 | NUR ---
Problems reprioritized. Patient report given, questions answered & plan of care reviewed with Isabella DUARTE.
[2021-11-21 06:58] LABS: BASOPHILS % (AUTO) 0.3 % (0-1); EOSINOPHILS # (AUTO) 0.3 X10'3 (0-0.9); EOSINOPHILS % (AUTO) 2.3 % (0-6); HEMATOCRIT 26.4 % (42.0-52.0); HEMOGLOBIN 8.5 g/dl (14.0-17.9); LYMPHOCYTES # (AUTO) 1.4 X10'3 (1.1-4.8); LYMPHOCYTES % (AUTO) 9.5 % (21-51); MEAN CORPUSCULAR HGB CONC 32.1 g/dL (33.0-36.5); MEAN CORPUSCULAR VOLUME 84.1 FL (78-98); MONOCYTES # (AUTO) 0.7 X10'3 (0-0.9); MONOCYTES % (AUTO) 4.8 % (2-12); NEUTROPHILS # (AUTO) 11.8 X10'3 (1.8-7.7); NEUTROPHILS % (AUTO) 83.1 % (42-75); PLATELET COUNT 119 X10'3 (140-440); RED BLOOD COUNT 3.14 X10'6 (4.70-6.10); RED CELL DISTRIBUTION WIDTH 23.3 % (11.5-14.5); WHITE BLOOD COUNT 14.2 X10'3 (4.5-11.0)
[2021-11-21] MEDS: K and/or MAG REPLACEMENT MC SCH ×2 (08:00→20:08)
[2021-11-21] MEDS: potassium chloride 10mEq ER tablet PO SCH (08:00)
[2021-11-21] MEDS: lisinopril 2.5mg tablet PO SCH (08:00)
[2021-11-21] MEDS: methadone 10mg tablet PO SCH (08:01)
[2021-11-21] MEDS: potassium Cl 20 mEq SR tablet PO PRN ×4 (08:02→20:07)
[2021-11-21] MEDS: pantoprazole 40mg Tablet.DR PO SCH (08:02)
[2021-11-21] MEDS: docusate sod 100mg capsule PO SCH ×2 (08:02→20:01)
[2021-11-21] MEDS: enoxaparin 40mg/0.4ml syringe SUBCUT SCH (08:03)
[2021-11-21] MEDS: carvedilol 6.25mg tablet PO SCH ×2 (10:30→20:01)
[2021-11-21 11:00] VITALS: BP 99/54
[2021-11-21] MEDS: furosemide 20 MG/2 ML vial IV SCH ×2 (12:00→20:00)
[2021-11-21] MEDS ORDERED: PERFLUTREN PROTEIN-A MICROSPHR (Optison) 0.22 MG/ML 3ML VIAL IV ONE (13:30)
--- NOTE | 2021-11-21 13:41 | NUR ---
PRESSURE ULCER EDUCATION: DEFINITION: A pressure ulcer is an area of skin that breaks down when you stay in one position too long. The constant pressure against the skin reduces the blood flow to that area and the affected tissue dies. CAUSES: "Being bedridden or in a wheelchair "Fragile skin "Having a chronic condition, such as diabetes or vascular disease "Inability to move certain parts of your body without assistance "Older age "Incontinence of urine or stool SYMPTOMS: "A reddened area that DOES NOT turn white when pressed on - this can be the beginning of a pressure ulcer "A blister, deep sore or a crater - these can be advanced pressure ulcers FIRST AID: "Relieve the pressure on this area "Keep the area clean and dry "Call your primary doctor if you see any of the above symptoms "DO NOT massage the area "DO NOT use a donut shaped or ring shaped pillow- these actually interfere with the blood flow and cause complications PREVENTION: "Check for pressure ulcers everyday "Change position at least every two hours to relieve pressure "Use items that help relieve pressure- pillows, sheepskin, foam padding, and powders. "Keep skin clean and dry "Eat healthy well balanced meals "Exercise daily IF YOU SEE ANY OF THESE SYMPTOMS WHILE IN THE HOSPITAL - TELL YOUR NURSE IMMEDIATELY. IF YOU SEE ANY OF THESE SYMPTOMS WHILE AT HOME OR HAVE ANY QUESTIONS OR CONCERNS ABOUT PRESSURE ULCERS - CALL YOUR PRIMARY DOCTOR IMMEDIATELY. Addendum: 11/21/21 at 1342 by Stella Patel LVN Amended: Links added.
[2021-11-21] MEDS ORDERED: ondansetron 4mg rapidly disintigrating tab PO PRN (14:25)
[2021-11-21 15:00] VITALS: BP 108/57
[2021-11-21 18:00] VITALS: BP 103/51
--- NOTE | 2021-11-21 18:48 | NUR ---
Problems reprioritized. Patient report given, questions answered & plan of care reviewed with Sydney RN, pt stable at transfer of care.
[2021-11-21] MEDS ORDERED: furosemide 20 MG/2 ML vial IV SCH ×2 (20:00)
[2021-11-21] MEDS: mineral oil/petrolatum, white cream 113gm jar TP SCH (20:01)
[2021-11-21 22:00] VITALS: BP 97/62
[2021-11-22] VITALS (13 sets, daily range): BP systolic 85–103; BP diastolic 52–65
[2021-11-22] MEDS: cefepime 1GM/NS ADD-VANTAGE 100 ML IV SCH ×3 (00:22→17:57)
[2021-11-22] MEDS: vancomycin/NS 1 GM ADD-VANTAGE 250 ML IV SCH ×2 (04:28→19:02)
--- NOTE | 2021-11-22 06:28 | NUR ---
Problems reprioritized. Patient report given, questions answered & plan of care reviewed with Isabella DUARTE.
--- NOTE | 2021-11-22 06:32 | NUR ---
Patient in room PCU 3012. I have received report from Sydney DUARTE and had the opportunity to ask questions and assume patient care.
[2021-11-22 06:49] LABS: BASOPHILS # (AUTO) 0.1 X10'3 (0-0.2); BASOPHILS % (AUTO) 0.5 % (0-1); EOSINOPHILS # (AUTO) 0.4 X10'3 (0-0.9); EOSINOPHILS % (AUTO) 2.6 % (0-6); HEMATOCRIT 29.6 % (42.0-52.0); HEMOGLOBIN 9.3 g/dl (14.0-17.9); LYMPHOCYTES % (AUTO) 15.3 % (21-51); MEAN CORPUSCULAR HEMOGLOBIN 26.8 PG (27.0-31.0); MEAN CORPUSCULAR HGB CONC 31.4 g/dL (33.0-36.5); MEAN CORPUSCULAR VOLUME 85.4 FL (78-98); MEAN PLATELET VOLUME 8.4 FL (7.4-10.4); MONOCYTES # (AUTO) 0.8 X10'3 (0-0.9); MONOCYTES % (AUTO) 5.6 % (2-12); NEUTROPHILS # (AUTO) 10.2 X10'3 (1.8-7.7); PLATELET COUNT 123 X10'3 (140-440); RED BLOOD COUNT 3.47 X10'6 (4.70-6.10); RED CELL DISTRIBUTION WIDTH 24.3 % (11.5-14.5); WHITE BLOOD COUNT 13.4 X10'3 (4.5-11.0)
[2021-11-22 07:23] LABS: ALANINE AMINOTRANSFERASE 131 U/L (12-78); ALBUMIN 1.4 G/DL (3.4-5.0); ALBUMIN/GLOBULIN RATIO 0.3 (1.1-1.5); ALKALINE PHOSPHATASE 146 IU/L (46-116); ANION GAP 6 (8-16); ASPARTATE AMINO TRANSFERASE 54 U/L (10-37); BILIRUBIN,TOTAL 1.7 MG/DL (0.1-1.0); BLOOD UREA NITROGEN 25 MG/DL (7-18); BUN/CREATININE RATIO 21.2 (5.4-32.0); CALCIUM 7.3 MG/DL (8.5-10.1); CHLORIDE 102 MMOL/L (99-107); CREATININE 1.18 MG/DL (0.60-1.10); GLUCOSE 75 MG/DL (70-104); POTASSIUM 3.9 MMOL/L (3.5-5.1); SODIUM 137 MMOL/L (135-145); TOTAL CARBON DIOXIDE 28.8 MMOL/L (24-32); TOTAL PROTEIN 6.7 G/DL (6.4-8.2); eGFR 75 ML/MIN
[2021-11-22] MEDS: K and/or MAG REPLACEMENT MC SCH ×2 (08:00→20:00)
[2021-11-22] MEDS: furosemide 20 MG/2 ML vial IV SCH ×2 (08:00→20:00)
[2021-11-22 08:27] LABS: ANISOCYTOSIS 3+; PLATELET ESTIMATE DECREASED
[2021-11-22 08:28] LABS: HYPOCHROMASIA 1+
[2021-11-22] MEDS: enoxaparin 40mg/0.4ml syringe SUBCUT SCH (08:33)
[2021-11-22] MEDS: mineral oil/petrolatum, white cream 113gm jar TP SCH ×2 (08:35→20:00)
[2021-11-22] MEDS: methadone 10mg tablet PO SCH (08:35)
[2021-11-22] MEDS: pantoprazole 40mg Tablet.DR PO SCH (08:36)
[2021-11-22] MEDS: carvedilol 6.25mg tablet PO SCH ×2 (08:36→20:09)
[2021-11-22] MEDS: lisinopril 2.5mg tablet PO SCH (08:36)
[2021-11-22] MEDS: docusate sod 100mg capsule PO SCH ×2 (08:36→20:09)
[2021-11-22] MEDS: potassium chloride 10mEq ER tablet PO SCH (08:36)
[2021-11-22] MEDS ORDERED: LIDOcaine 1%/PF 5ML 10 MG/ML VIAL ONE (12:53)
--- NOTE | 2021-11-22 18:23 | NUR ---
Problems reprioritized. Patient report given, questions answered & plan of care reviewed with FELICIA Grimes.
--- NOTE | 2021-11-22 18:56 | NUR ---
Patient in room PCU 3012A. I have received report from Isabella DUARTE and had the opportunity to ask questions and assume patient care.
[2021-11-23] MEDS: cefepime 1GM/NS ADD-VANTAGE 100 ML IV SCH ×3 (00:52→15:37)
[2021-11-23 02:00] VITALS: BP 100/66
[2021-11-23 02:59] VITALS: BP 98/63
[2021-11-23] MEDS: vancomycin/NS 1 GM ADD-VANTAGE 250 ML IV SCH ×2 (04:21→16:24)
[2021-11-23 06:00] VITALS: BP 63/67
[2021-11-23 06:09] LABS: BASOPHILS # (AUTO) 0.1 X10'3 (0-0.2); BASOPHILS % (AUTO) 0.7 % (0-1); EOSINOPHILS # (AUTO) 0.3 X10'3 (0-0.9); EOSINOPHILS % (AUTO) 2.5 % (0-6); HEMOGLOBIN 8.7 g/dl (14.0-17.9); LYMPHOCYTES # (AUTO) 1.9 X10'3 (1.1-4.8); LYMPHOCYTES % (AUTO) 19.1 % (21-51); MEAN CORPUSCULAR HEMOGLOBIN 27.4 PG (27.0-31.0); MEAN CORPUSCULAR HGB CONC 32.2 g/dL (33.0-36.5); MEAN CORPUSCULAR VOLUME 85.1 FL (78-98); MEAN PLATELET VOLUME 8.7 FL (7.4-10.4); MONOCYTES # (AUTO) 0.7 X10'3 (0-0.9); NEUTROPHILS % (AUTO) 70.7 % (42-75); PLATELET COUNT 130 X10'3 (140-440); RED BLOOD COUNT 3.18 X10'6 (4.70-6.10); RED CELL DISTRIBUTION WIDTH 23.4 % (11.5-14.5); WHITE BLOOD COUNT 9.9 X10'3 (4.5-11.0)
[2021-11-23 06:43] LABS: ALANINE AMINOTRANSFERASE 110 U/L (12-78); ALBUMIN 1.4 G/DL (3.4-5.0); ALBUMIN/GLOBULIN RATIO 0.3 (1.1-1.5); ALKALINE PHOSPHATASE 143 IU/L (46-116); ANION GAP 6 (8-16); ASPARTATE AMINO TRANSFERASE 48 U/L (10-37); BILIRUBIN,TOTAL 1.5 MG/DL (0.1-1.0); BLOOD UREA NITROGEN 27 MG/DL (7-18); BUN/CREATININE RATIO 20.1 (5.4-32.0); CALCIUM 7.4 MG/DL (8.5-10.1); CHLORIDE 103 MMOL/L (99-107); CREATININE 1.34 MG/DL (0.60-1.10); GLUCOSE 105 MG/DL (70-104); POTASSIUM 4.1 MMOL/L (3.5-5.1); SODIUM 137 MMOL/L (135-145); TOTAL CARBON DIOXIDE 28.1 MMOL/L (24-32); TOTAL PROTEIN 6.6 G/DL (6.4-8.2); eGFR 64 ML/MIN
--- NOTE | 2021-11-23 06:43 | NUR ---
Problems reprioritized. Patient report given, questions answered & plan of care reviewed with Rosibel DUARTE.
[2021-11-23 06:47] LABS: ANISOCYTOSIS 3+; HYPOCHROMASIA 1+; PLATELET ESTIMATE DECREASED; POLYCHROMASIA 1+; TARGET CELLS 1+
[2021-11-23] MEDS ORDERED: PERFLUTREN PROTEIN-A MICROSPHR (Optison) 0.22 MG/ML 3ML VIAL IV PRN (07:25)
[2021-11-23] MEDS: lisinopril 2.5mg tablet PO SCH (08:00)
[2021-11-23] MEDS: carvedilol 6.25mg tablet PO SCH ×2 (08:00→21:06)
[2021-11-23] MEDS: mineral oil/petrolatum, white cream 113gm jar TP SCH ×2 (08:00→21:15)
[2021-11-23] MEDS: K and/or MAG REPLACEMENT MC SCH ×2 (08:00→20:00)
[2021-11-23] MEDS: furosemide 20 MG/2 ML vial IV SCH ×2 (08:18→21:06)
[2021-11-23] MEDS: docusate sod 100mg capsule PO SCH ×2 (08:18→21:06)
[2021-11-23] MEDS: methadone 10mg tablet PO SCH (08:19)
[2021-11-23] MEDS: pantoprazole 40mg Tablet.DR PO SCH (08:20)
[2021-11-23] MEDS: potassium chloride 10mEq ER tablet PO SCH (08:20)
[2021-11-23] MEDS: enoxaparin 40mg/0.4ml syringe SUBCUT SCH (08:24)
[2021-11-23 11:00] VITALS: BP 111/71
[2021-11-23 15:00] VITALS: BP 109/76
--- NOTE | 2021-11-23 18:40 | NUR ---
Problems reprioritized. Patient report given, questions answered & plan of care reviewed with FELICIA Melendez.
[2021-11-23 19:00] VITALS: BP 108/75
[2021-11-24] MEDS: cefepime 1GM/NS ADD-VANTAGE 100 ML IV SCH ×3 (01:02→15:33)
[2021-11-24 03:00] VITALS: BP 100/68
[2021-11-24] MEDS: vancomycin/NS 1 GM ADD-VANTAGE 250 ML IV SCH ×2 (04:53→16:30)
[2021-11-24 06:00] VITALS: BP 105/58
--- NOTE | 2021-11-24 07:02 | NUR ---
Problems reprioritized. Patient report given,FELICIA Beyer, questions answered & plan of care reviewed with .
[2021-11-24 08:24] LABS: BASOPHILS # (AUTO) 0.1 X10'3 (0-0.2); BASOPHILS % (AUTO) 0.6 % (0-1); EOSINOPHILS # (AUTO) 0.2 X10'3 (0-0.9); EOSINOPHILS % (AUTO) 2.4 % (0-6); HEMATOCRIT 27.8 % (42.0-52.0); HEMOGLOBIN 8.7 g/dl (14.0-17.9); LYMPHOCYTES # (AUTO) 1.5 X10'3 (1.1-4.8); LYMPHOCYTES % (AUTO) 16.7 % (21-51); MEAN CORPUSCULAR HEMOGLOBIN 26.8 PG (27.0-31.0); MEAN CORPUSCULAR HGB CONC 31.4 g/dL (33.0-36.5); MEAN CORPUSCULAR VOLUME 85.1 FL (78-98); MEAN PLATELET VOLUME 8.4 FL (7.4-10.4); MONOCYTES # (AUTO) 0.7 X10'3 (0-0.9); MONOCYTES % (AUTO) 7.4 % (2-12); NEUTROPHILS # (AUTO) 6.7 X10'3 (1.8-7.7); NEUTROPHILS % (AUTO) 72.9 % (42-75); PLATELET COUNT 152 X10'3 (140-440); RED BLOOD COUNT 3.27 X10'6 (4.70-6.10); RED CELL DISTRIBUTION WIDTH 23.4 % (11.5-14.5); WHITE BLOOD COUNT 9.2 X10'3 (4.5-11.0)
[2021-11-24 09:04] LABS: ALANINE AMINOTRANSFERASE 100 U/L (12-78); ALBUMIN 1.4 G/DL (3.4-5.0); ALBUMIN/GLOBULIN RATIO 0.2 (1.1-1.5); ALKALINE PHOSPHATASE 128 IU/L (46-116); ANION GAP 8 (8-16); ASPARTATE AMINO TRANSFERASE 45 U/L (10-37); BILIRUBIN,TOTAL 1.5 MG/DL (0.1-1.0); BLOOD UREA NITROGEN 26 MG/DL (7-18); BUN/CREATININE RATIO 22.6 (5.4-32.0); CALCIUM 7.7 MG/DL (8.5-10.1); CHLORIDE 103 MMOL/L (99-107); CREATININE 1.15 MG/DL (0.60-1.10); GLUCOSE 79 MG/DL (70-104); POTASSIUM 4.1 MMOL/L (3.5-5.1); SODIUM 140 MMOL/L (135-145); TOTAL CARBON DIOXIDE 28.6 MMOL/L (24-32); TOTAL PROTEIN 7.1 G/DL (6.4-8.2); eGFR 77 ML/MIN
--- NOTE | 2021-11-24 09:28 | NUR ---
Life Vest at bedside. Patient refusing to put on. Will continue to encourage and educate throughout the day. Have not yet received report from RN.
[2021-11-24] MEDS: K and/or MAG REPLACEMENT MC SCH ×3 (09:30→23:23)
[2021-11-24] MEDS: methadone 10mg tablet PO SCH (10:04)
[2021-11-24] MEDS: potassium chloride 10mEq ER tablet PO SCH (10:04)
[2021-11-24] MEDS: carvedilol 6.25mg tablet PO SCH ×2 (10:04→21:02)
[2021-11-24] MEDS: docusate sod 100mg capsule PO SCH ×2 (10:05→21:02)
[2021-11-24] MEDS: furosemide 20 MG/2 ML vial IV SCH ×2 (10:05→21:01)
[2021-11-24] MEDS: lisinopril 2.5mg tablet PO SCH (10:05)
[2021-11-24] MEDS: enoxaparin 40mg/0.4ml syringe SUBCUT SCH (10:08)
[2021-11-24] MEDS: pantoprazole 40mg Tablet.DR PO SCH (10:09)
[2021-11-24 11:47] VITALS: BP 102/68
--- NOTE | 2021-11-24 12:00 | NUR ---
Encouraged and explained necessity of life vest. Patient refused.
--- NOTE | 2021-11-24 12:32 | NUR ---
Initial: Pt admit for sepsis secondary to cellulitis with acute CHF exacerbation. Pt seen by wound care, per report pt with partial thick wounds to BLE. Pt on a heart healthy diet and appears to be eating poorly with mostly 0-25% PO intake of meals. Pt and mother seen at bedside. Pt and mother report pt is eating food being brought in and both confirm that pt is eating well. Pt likely meeting estimated nutrient needs with outside food. Food preferences were obtained and d/w dietary to optimize PO intake of meals, see below. Pt denies food allergies or difficulty chewing/swallowing. LBM 11/23. Pt provided with RD contact information and encouraged to reach out if needed. Will continue to follow. Recommendations: 1) Liberalize to regular diet in view of lipid panel WNL with the exception of low HDL and LDL and pt not consuming hospital food; with mostly 100% PO intake on regular diet at previous admit 10/13- 2) Allow outside food to optimize PO intake 3) [place] food preferences: bro WHITTEN, no gravy 4) Routine bowel care 5) Weekly scaled weights Addendum: 11/24/21 at [address] Amended: Links added.
[2021-11-24 15:00] VITALS: BP 90/56
[2021-11-24 19:00] VITALS: BP 65/83
[2021-11-24] MEDS: mineral oil/petrolatum, white cream 113gm jar TP SCH ×2 (21:03→21:08)
--- NOTE | 2021-11-25 | NUR ---
0000: Drsg to bilateral completed per order. Wound bed appeared dry.
[2021-11-25] MEDS: cefepime 1GM/NS ADD-VANTAGE 100 ML IV SCH ×3 (00:47→16:00)
[2021-11-25 03:00] VITALS: BP 103/73
[2021-11-25] MEDS: vancomycin/NS 1 GM ADD-VANTAGE 250 ML IV SCH ×2 (04:20→16:00)
--- NOTE | 2021-11-25 06:48 | NUR ---
Problems reprioritized. Patient report given,FELICIA Aden, questions answered & plan of care reviewed with .
[2021-11-25 07:00] VITALS: BP 107/74
[2021-11-25] MEDS: enoxaparin 40mg/0.4ml syringe SUBCUT SCH (07:51)
[2021-11-25] MEDS: lisinopril 2.5mg tablet PO SCH (07:53)
[2021-11-25] MEDS: carvedilol 6.25mg tablet PO SCH ×2 (07:53→20:11)
[2021-11-25] MEDS: methadone 10mg tablet PO SCH (07:54)
[2021-11-25] MEDS: docusate sod 100mg capsule PO SCH ×2 (07:54→20:11)
[2021-11-25] MEDS: potassium chloride 10mEq ER tablet PO SCH (07:54)
[2021-11-25] MEDS: furosemide 20 MG/2 ML vial IV SCH ×2 (07:54→20:11)
[2021-11-25] MEDS: K and/or MAG REPLACEMENT MC SCH ×2 (08:00→20:12)
[2021-11-25 11:00] VITALS: BP 101/71
[2021-11-25] MEDS: pantoprazole 40mg Tablet.DR PO SCH (12:00)
[2021-11-25] MEDS: mineral oil/petrolatum, white cream 113gm jar TP SCH ×2 (15:00→20:11)
[2021-11-25 17:04] LABS: URINE AMPHETAMINE SCREEN NEGATIVE (Neg); URINE BARBITUATE SCREEN NEGATIVE (Neg); URINE BENZODIAZEPINES SCREEN NEGATIVE (Neg); URINE CANNABINOID SCREEN POSITIVE (Neg); URINE COCAINE SCREEN NEGATIVE (Neg); URINE METHADONE SCREEN POSITIVE (Neg); URINE OPIATE SCREEN NEGATIVE (Neg); URINE PHENCYCLIDINE SCREEN NEGATIVE (Neg)
[2021-11-25 19:00] VITALS: BP 107/67
[2021-11-25 22:00] VITALS: BP 98/65
[2021-11-26] VITALS (8 sets, daily range): BP systolic 97–125; BP diastolic 63–75
[2021-11-26] MEDS: cefepime 1GM/NS ADD-VANTAGE 100 ML IV SCH ×4 (01:05→23:06)
[2021-11-26] MEDS: vancomycin/NS 1 GM ADD-VANTAGE 250 ML IV SCH ×2 (03:51→17:10)
--- NOTE | 2021-11-26 06:54 | NUR ---
Problems reprioritized. Patient report given, FELICIA Jameson, questions answered & plan of care reviewed with .
--- NOTE | 2021-11-26 07:04 | NUR ---
I tried to introduced myself to the patient, he was still very sleepy. Right chest tube showed no sign of air leak during m rounds
[2021-11-26] MEDS: docusate sod 100mg capsule PO SCH ×2 (08:00→19:01)
[2021-11-26] MEDS: K and/or MAG REPLACEMENT MC SCH ×2 (08:00→18:12)
--- NOTE | 2021-11-26 09:13 | NUR ---
[place]STON ID: [phone] MESSAGE: MANDA ON [phone], THE MOTHER OF LUZ MARIA Mays IS HERE IF YOU ARE ABLE TO COME SPEAK WITH HER. THANK YOU.
[2021-11-26] MEDS: potassium chloride 10mEq ER tablet PO SCH (09:44)
[2021-11-26] MEDS: furosemide 20 MG/2 ML vial IV SCH ×2 (09:45→19:01)
[2021-11-26] MEDS: pantoprazole 40mg Tablet.DR PO SCH (09:45)
[2021-11-26] MEDS: methadone 10mg tablet PO SCH (09:45)
[2021-11-26] MEDS: carvedilol 6.25mg tablet PO SCH ×2 (09:45→19:00)
[2021-11-26] MEDS: mineral oil/petrolatum, white cream 113gm jar TP SCH ×2 (09:46→19:02)
[2021-11-26] MEDS: enoxaparin 40mg/0.4ml syringe SUBCUT SCH (09:47)
[2021-11-26] MEDS: lisinopril 2.5mg tablet PO SCH (09:57)
[2021-11-27] MEDS ORDERED: VANCOMYCIN LEVEL IV ONE (03:30)
[2021-11-27] MEDS: vancomycin/NS 1 GM ADD-VANTAGE 250 ML IV SCH (04:00)
[2021-11-27 04:35] LABS: VANCOMYCIN,TROUGH 30.5 UG/ML (6.0-14.0)
[2021-11-27 06:00] VITALS: BP 97/59
--- NOTE | 2021-11-27 06:31 | NUR ---
Care endorsed to FELICIA Dunn
[2021-11-27] MEDS: lisinopril 2.5mg tablet PO SCH (08:00)
[2021-11-27] MEDS: mineral oil/petrolatum, white cream 113gm jar TP SCH (08:00)
[2021-11-27] MEDS: carvedilol 6.25mg tablet PO SCH (08:00)
[2021-11-27] MEDS: K and/or MAG REPLACEMENT MC SCH (08:00)
[2021-11-27] MEDS: cefepime 1GM/NS ADD-VANTAGE 100 ML IV SCH (09:01)
[2021-11-27] MEDS: methadone 10mg tablet PO SCH (09:01)
[2021-11-27] MEDS: potassium chloride 10mEq ER tablet PO SCH (09:01)
[2021-11-27] MEDS: pantoprazole 40mg Tablet.DR PO SCH (09:01)
[2021-11-27] MEDS: enoxaparin 40mg/0.4ml syringe SUBCUT SCH (09:02)
[2021-11-27] MEDS: furosemide 20 MG/2 ML vial IV SCH (09:02)
[2021-11-27] MEDS: docusate sod 100mg capsule PO SCH (09:02)
[2021-11-27 11:00] VITALS: BP 101/75
[2021-11-27 12:09] LABS: CREATININE 1.43 MG/DL (0.60-1.10); eGFR 60 ML/MIN
--- NOTE | 2021-11-27 13:34 | NUR ---
WOUND INFECTION EDUCATION PROVIDED BY WOUND CARE 1. Patient instructed to call their primary doctor, or go the ED immediately if any of the following symptoms occur: * Increased pain in wound * Increase in drainage from the wound * Redness in the skin surrounding the wound * Warmth in the skin surrounding the wound * Bleeding from the wound * Temperature of 101 or greater 2. If any of these occur while in the hospital tell a nurse immediately. Addendum: 11/27/21 at 1334 by Stella Patel LVN Amended: Links added.
--- NOTE | 2021-11-27 13:42 | NUR ---
PAGER ID: [phone] MESSAGE: [id number]. Ambulated with patient. No need for PT. Mona DUARTE [phone]
[2021-11-27] MEDS ORDERED: CEFD300C3 PO (14:04)
[2021-11-27] MEDS ORDERED: DOXY-243 PO (14:04)
[2021-11-27] MEDS ORDERED: ASPI-611 PO (14:09)
--- NOTE | 2021-11-27 14:46 | NUR ---
Wound care done by wound care nurse prior to DC orders, patient refusing to have dressing removed Addendum: 11/27/21 at 1447 by Mona Jones RN Amended: Links added.
--- NOTE | 2021-11-27 15:14 | NUR ---
Discharge paperwork reviewed with patient. Belongings, including life vest, sent home with patient although patient reused to wear life vest upon discharge. IV removed, catheter tip intact. Patient taken down to lobby by NA, where family member is waiting for him. Patient free from injuries.
== END 2021-11-27 15:13 | disposition home or self-care (01) | DRG 871 ==
LOC: ER 12:26 → ED HOLD 17:10 → PCU 3S 18:45
PROVIDERS: ADMIT Family Medicine; ATTEND Family Medicine
PROC: 0W9930Z Drainage of Right Pleural Cavity with Drainage Device, Percutaneous Approach (ICD-10-PCS; principal; 2021-11-22)
DX: A41.9 Sepsis, unspecified organism (principal); I50.23 Acute on chronic systolic (congestive) heart failure; N17.0 Acute kidney failure with tubular necrosis; J86.9 Pyothorax without fistula; J18.9 Pneumonia, unspecified organism; E44.0 Moderate protein-calorie malnutrition; I42.7 Cardiomyopathy due to drug and external agent; J94.8 Other specified pleural conditions; L03.115 Cellulitis of right lower limb; L03.116 Cellulitis of left lower limb; J91.8 Pleural effusion in other conditions classified elsewhere; E87.2 Acidosis; R79.89 Other specified abnormal findings of blood chemistry; D50.9 Iron deficiency anemia, unspecified; F11.90 Opioid use, unspecified, uncomplicated; F12.90 Cannabis use, unspecified, uncomplicated; E83.51 Hypocalcemia; E87.6 Hypokalemia; G89.4 Chronic pain syndrome; K76.1 Chronic passive congestion of liver; R65.20 Severe sepsis without septic shock; F17.210 Nicotine dependence, cigarettes, uncomplicated; Y92.89 Other specified places as the place of occurrence of the external cause; Z56.0 Unemployment, unspecified; Z68.28 Body mass index [BMI] 28.0-28.9, adult
CPT/HCPCS: 32557; 36415; 71045; 71250; 80053; 80202; 80305; 82565; 83605; 83735; 83880; 84132; 84145; 84484; 85008; 85025; 87040; 87070; 87081; 93005; 93308; 96374; 96375; 99285; G0378; J0692; J0696; J1650; J1940; J3370; J3490

== ENCOUNTER 2022-01-23 17:52 | Inpatient (IN) | payer BC, MEDICAID ==
[~2022-01-23] VITALS: Ht 175.3 cm; Wt 79.6 kg
[~2022-01-23 17:52] MED LIST changes: +FURO40TA4 PO; +METH-603 PO; +PANT-47 PO; -PANT40TA54 PO; +POTA-188 PO; -POTA10TA37 PO
[2022-01-23 21:01] LABS: CLARITY,URINE CLOUDY (Clear); COLOR,URINE YELLOW (Yellow); GLUCOSE, URINE NEGATIVE (Neg); KETONES,URINE NEGATIVE (Neg); LEUKOCYTE ESTERASE ,URINE TRACE (Neg); NITRITES, URINE NEGATIVE (Neg); OCCULT BLOOD,URINE LARGE (Neg); PH,URINE 5.5 (4.8-8.0); PROTEIN,URINE 30 mg/dl (Neg)
[2022-01-23 21:14] LABS: BASOPHILS % (AUTO) 0.1 % (0-1); EOSINOPHILS # (AUTO) 0.1 X10'3 (0-0.9); EOSINOPHILS % (AUTO) 0.9 % (0-6); HEMATOCRIT 30.9 % (42.0-52.0); HEMOGLOBIN 9.7 g/dl (14.0-17.9); LYMPHOCYTES # (AUTO) 1.3 X10'3 (1.1-4.8); LYMPHOCYTES % (AUTO) 17.2 % (21-51); MEAN CORPUSCULAR HEMOGLOBIN 29.8 PG (27.0-31.0); MEAN CORPUSCULAR HGB CONC 31.3 g/dL (33.0-36.5); MEAN CORPUSCULAR VOLUME 95.1 FL (78-98); MEAN PLATELET VOLUME 8.8 FL (7.4-10.4); MONOCYTES # (AUTO) 0.3 X10'3 (0-0.9); NEUTROPHILS # (AUTO) 5.7 X10'3 (1.8-7.7); NEUTROPHILS % (AUTO) 77.8 % (42-75); PLATELET COUNT 63 X10'3 (140-440); RED BLOOD COUNT 3.25 X10'6 (4.70-6.10); RED CELL DISTRIBUTION WIDTH 23.4 % (11.5-14.5); WHITE BLOOD COUNT 7.4 X10'3 (4.5-11.0)
[2022-01-23 21:20] LABS: UA COLLECTION TYPE CLN CATCH MIDSTREAM
[2022-01-23 21:31] LABS: ALANINE AMINOTRANSFERASE 63 U/L (12-78); ALBUMIN 1.7 G/DL (3.4-5.0); ALKALINE PHOSPHATASE 113 IU/L (46-116); ASPARTATE AMINO TRANSFERASE 136 U/L (10-37); BILIRUBIN,TOTAL 3.6 MG/DL (0.1-1.0); BLOOD UREA NITROGEN 52 MG/DL (7-18); BUN/CREATININE RATIO 22.7 (5.4-32.0); CALCIUM 8.1 MG/DL (8.5-10.1); CHLORIDE 100 MMOL/L (99-107); CREATININE 2.29 MG/DL (0.60-1.10); LIPASE 92 U/L (73-393); eGFR 35 ML/MIN
[2022-01-23 21:31] LABS: RBC,URINE 20-50 /HPF (0-2)
[2022-01-23 21:32] LABS: BACTERIA,URINE 2+ /HPF (Neg); MUCUS STRANDS FEW /LPF (Neg); SQUAMOUS EPITHELIAL CELL,UR FEW /LPF (FEW)
[2022-01-23 21:33] LABS: YEAST FEW /HPF (NEGATIVE)
[2022-01-23 21:48] LABS: ALBUMIN/GLOBULIN RATIO 0.3 (1.1-1.5); ANISOCYTOSIS 3+; GLUCOSE 66 MG/DL (70-104); PLATELET ESTIMATE DECREASED; POTASSIUM 3.8 MMOL/L (3.5-5.1); TOTAL PROTEIN 8.2 G/DL (6.4-8.2)
[2022-01-23 21:50] LABS: ANION GAP 10 (8-16); SODIUM 133 MMOL/L (135-145)
[2022-01-23] MEDS ORDERED: normal saline 1000ml 1,000 ML IV ONE (22:25)
[2022-01-23 22:51] LABS: URINE AMPHETAMINE SCREEN NEGATIVE (Neg); URINE BARBITUATE SCREEN NEGATIVE (Neg); URINE BENZODIAZEPINES SCREEN NEGATIVE (Neg); URINE CANNABINOID SCREEN POSITIVE (Neg); URINE COCAINE SCREEN NEGATIVE (Neg); URINE METHADONE SCREEN POSITIVE (Neg); URINE OPIATE SCREEN NEGATIVE (Neg); URINE PHENCYCLIDINE SCREEN NEGATIVE (Neg)
[2022-01-23 22:57] LABS: ETHANOL < 0.010 GM/DL (0.0-0.010); MAGNESIUM 2.1 MG/DL (1.5-2.4)
[2022-01-24] MEDS ORDERED: magnesium 4gm in 100ml NS 100 ML IV PRN (10:05)
[2022-01-24] MEDS ORDERED: HYDROcodone/acetaminophen 5mg/325mg tablet PO PRN (10:05)
[2022-01-24] MEDS ORDERED: acetaminophen 325mg tablet PO PRN ×2 (10:05)
[2022-01-24] MEDS ORDERED: magnesium Cl slow-release 64mg tablet PO PRN (10:05)
[2022-01-24] MEDS ORDERED: potassium CL 10mEq/100ml bag 100 ML IV PRN (10:05)
[2022-01-24] MEDS ORDERED: POTASSIUM BICARB 20meq eff tab 20 MEQ TABLET.EFF PO PRN ×2 (10:05)
[2022-01-24] MEDS ORDERED: magnesium 2GM in 50ml NS 50 ML IV PRN (10:05)
[2022-01-24] MEDS ORDERED: ondansetron/PF 4mg/2ml inj IV PRN (10:05)
[2022-01-24] MEDS ORDERED: ondansetron 4mg rapidly disintigrating tab PO PRN (10:05)
[2022-01-24] MEDS ORDERED: acetaminophen 650mg rectal suppository RC PRN (10:05)
[2022-01-24] MEDS ORDERED: mag hydrox/Alum hydrox/simeth 30ml oral suspension PO PRN (10:05)
[2022-01-24] MEDS ORDERED: magnesium hydroxide 30ml (MOM) UD suspension PO PRN (10:05)
[2022-01-24] MEDS ORDERED: bisacodyl 10mg suppository rectal RC PRN (10:05)
[2022-01-24] MEDS ORDERED: HYDROcodone/acetaminophen 10/325mg tab PO PRN (10:05)
--- NOTE | 2022-01-24 10:15 | NUR ---
Pt had no admit orders placed. Notified hospital "Insert Operator" Dr. Gonzalez and was instructed to page Dr. Busby. Upon notifying Dr. Busby I was instructed to have group page sent out for pt to be picked up.
--- NOTE | 2022-01-24 10:20 | NUR ---
Dr. Suarez to place admit orders.
[2022-01-24] MEDS: furosemide 20 MG/2 ML vial IV SCH ×2 (11:28→20:35)
[2022-01-24 11:57] LABS: POTASSIUM 3.5 MMOL/L (3.5-5.1)
[2022-01-24 12:21] LABS: APTT 46 SECONDS (22-32)
[2022-01-24] MEDS ORDERED: ALBU17AE26 PO (13:01)
[2022-01-24] MEDS ORDERED: ASPI-1397 (13:01)
[2022-01-24] MEDS ORDERED: DOXY100T2 (13:01)
--- NOTE | 2022-01-24 16:43 | NUR ---
assisting RN with pt care, report called to Harsha DUARTE
--- NOTE | 2022-01-24 17:15 | NUR ---
RECEIVED PATIENT, ASSUMED CARE. REDRESSED AND TOOK PHOTO OF WOUNDS. VS STABLE
[2022-01-24] MEDS ORDERED: albuterol 2.5 MG/3 ML nebule NEB PRN (17:25)
[2022-01-24 17:57] VITALS: BP 97/73
[2022-01-24 18:00] VITALS: BP 97/73
--- NOTE | 2022-01-24 19:08 | NUR ---
Patient in room PCU 3028 B. I have received report from Kvng DUARTE and had the opportunity to ask questions and assume patient care. Pt is sitting up on side of bed. Visitor at bedside. no s/s of distress, no c/o pain. BLL, call light within reach, frequently used items in reach, frequent rounding. Will continue to monitior.
[2022-01-24] MEDS: carvedilol 6.25mg tablet PO SCH (20:00)
[2022-01-24] MEDS: docusate sod 100mg capsule PO SCH (20:35)
[2022-01-24] MEDS: K and/or MAG REPLACEMENT MC SCH (20:44)
[2022-01-24 22:00] VITALS: BP 110/74
[2022-01-25] VITALS (8 sets, daily range): BP systolic 87–130; BP diastolic 58–76
[2022-01-25 06:17] LABS: BASOPHILS % (AUTO) 0.2 % (0-1); EOSINOPHILS # (AUTO) 0.2 X10'3 (0-0.9); EOSINOPHILS % (AUTO) 2.9 % (0-6); HEMATOCRIT 31.4 % (42.0-52.0); LYMPHOCYTES # (AUTO) 1.4 X10'3 (1.1-4.8); LYMPHOCYTES % (AUTO) 23.8 % (21-51); MEAN CORPUSCULAR HEMOGLOBIN 30.1 PG (27.0-31.0); MEAN CORPUSCULAR HGB CONC 31.9 g/dL (33.0-36.5); MEAN CORPUSCULAR VOLUME 94.2 FL (78-98); MEAN PLATELET VOLUME 8.5 FL (7.4-10.4); MONOCYTES # (AUTO) 0.3 X10'3 (0-0.9); NEUTROPHILS # (AUTO) 3.8 X10'3 (1.8-7.7); NEUTROPHILS % (AUTO) 67.1 % (42-75); RED BLOOD COUNT 3.33 X10'6 (4.70-6.10); RED CELL DISTRIBUTION WIDTH 23.2 % (11.5-14.5); WHITE BLOOD COUNT 5.7 X10'3 (4.5-11.0)
--- NOTE | 2022-01-25 06:20 | NUR ---
Problems reprioritized. Patient report given, questions answered & plan of care reviewed with Kvng DUARTE.
[2022-01-25 06:23] LABS: ALANINE AMINOTRANSFERASE 56 U/L (12-78); ALBUMIN 1.7 G/DL (3.4-5.0); ALBUMIN/GLOBULIN RATIO 0.3 (1.1-1.5); ALKALINE PHOSPHATASE 126 IU/L (46-116); ANION GAP 8 (8-16); ASPARTATE AMINO TRANSFERASE 106 U/L (10-37); BILIRUBIN,TOTAL 3.2 MG/DL (0.1-1.0); BLOOD UREA NITROGEN 47 MG/DL (7-18); BUN/CREATININE RATIO 25.1 (5.4-32.0); CALCIUM 7.9 MG/DL (8.5-10.1); CHLORIDE 103 MMOL/L (99-107); CREATININE 1.87 MG/DL (0.60-1.10); MAGNESIUM 1.8 MG/DL (1.5-2.4); POTASSIUM 3.4 MMOL/L (3.5-5.1); SODIUM 137 MMOL/L (135-145); TOTAL CARBON DIOXIDE 25.9 MMOL/L (24-32); TOTAL PROTEIN 8.2 G/DL (6.4-8.2); eGFR 44 ML/MIN
[2022-01-25 06:24] LABS: GLUCOSE 74 MG/DL (70-104)
[2022-01-25 06:49] LABS: PLATELET COUNT 48 X10'3 (140-440)
[2022-01-25 06:50] LABS: ANISOCYTOSIS 3+; PLATELET ESTIMATE DECREASED; POLYCHROMASIA 1+; ROULEAUX 1+; TARGET CELLS 1+
--- NOTE | 2022-01-25 07:05 | NUR ---
PAGER ID: [phone] MESSAGE: CARMINA AARON [id number] CRITICAL PLATELETS OF 48 THANK YOU, ANALIA DUARTE
[2022-01-25] MEDS: potassium chloride 10mEq ER tablet PO SCH (07:59)
[2022-01-25] MEDS: pantoprazole 40mg Tablet.DR PO SCH (07:59)
[2022-01-25] MEDS: carvedilol 6.25mg tablet PO SCH ×2 (07:59→20:00)
[2022-01-25] MEDS: furosemide 20 MG/2 ML vial IV SCH (07:59)
[2022-01-25] MEDS: docusate sod 100mg capsule PO SCH ×2 (07:59→20:53)
[2022-01-25] MEDS: K and/or MAG REPLACEMENT MC SCH ×2 (08:00→20:35)
[2022-01-25] MEDS: aspirin 81mg, enteric-coated 1 TAB TABLET.DR PO SCH (08:00)
[2022-01-25] MEDS ORDERED: METH-603 PO (09:03)
[2022-01-25] MEDS ORDERED: LIDOcaine 1%/PF 5ML 10 MG/ML VIAL ONE (09:31)
--- NOTE | 2022-01-25 11:07 | NUR ---
PAGER ID: [phone] MESSAGE: RE REJI LOERA [id number] PLEASE REVIEW MED REC, NEEDS METHADONE DOSE TODAY THANK YOU. ANALIA
[2022-01-25 11:16] LABS: GLUCOSE,BODY FLUID 96 MG/DL; LDH,BODY FLUID 96 U/L; TOTAL PROTEIN,BODY FLUID 3.3 G/DL
[2022-01-25 12:00] LABS: LYMPHOCYTES,BODY FLUID 7 %; MONOCYTES,BODY FLUID 9 %; NEUTROPHILS,BODY FLUID 84 %
[2022-01-25 12:01] LABS: BF MESOTHELIAL CELLS OCCASIONAL; BF RBC COUNT 5600 /CU MM; BF WBC COUNT 175 /CU MM (0-1000); BFAPPEAR CLOUDY; BFCOLOR YELLOW; BFVOLUME 43 ML
--- NOTE | 2022-01-25 13:09 | NUR ---
Malnutrition consult: Per ED report patient's mom reports pt has lost about 15 lbs in the last five weeks. Pt seen at bedside, only able to obtain limited information as pt very sleepy. Pt states he is unsure of wt loss as he has not weighed himself recently and last known wt was 184 lbs but pt unsure of when that was obtained. Pt with scaled wt of 161 lbs followed by 176 lbs and RN unsure of how that wt was obtained. Pt with scaled wt h/o 175 lbs 10/15 and 183 lbs 11/23 per EMR. 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 Pt does appear thin but not cachectic with no severe visible fat or muscle wasting. Pt with no documented significant decrease in muscle strength and with BLE 2+ edema. Given limited information pt agrees for RD to call his mother, however no answer upon attempt. Given conflicting weight and unknown PO hx full malnutrition assessment pending at this time. Will f/u at another time and try to obtain additional information from patient and/or patient's mother. Pt denies food allergies or difficulty chewing/swallowing. Noted pt requested no gravy at previous admit d/t dislike, d/w dietary this admit. Pt provided with RD contact information and encouraged to reach out if needed. Will remain available. Addendum: 01/25/22 at [address] Amended: Links added.
[2022-01-25] MEDS: methadone 10mg tablet PO SCH (13:13)
--- NOTE | 2022-01-25 18:32 | NUR ---
Patient in room PCU 3028 B. I have received report from Kvng DUARTE and had the opportunity to ask questions and assume patient care
[2022-01-25] MEDS: DOXYCYCLINE 100MG CAPSULE PO SCH (20:53)
[2022-01-26 02:04] VITALS: BP 104/69
[2022-01-26 06:00] VITALS: BP 93/63
--- NOTE | 2022-01-26 06:19 | NUR ---
Problems reprioritized. Patient report given, questions answered & plan of care reviewed with Kvng DUARTE.
[2022-01-26 06:33] LABS: BASOPHILS % (AUTO) 0.2 % (0-1); EOSINOPHILS # (AUTO) 0.1 X10'3 (0-0.9); EOSINOPHILS % (AUTO) 2.4 % (0-6); HEMOGLOBIN 9.5 g/dl (14.0-17.9); LYMPHOCYTES # (AUTO) 1.4 X10'3 (1.1-4.8); LYMPHOCYTES % (AUTO) 24.1 % (21-51); MEAN CORPUSCULAR HEMOGLOBIN 29.9 PG (27.0-31.0); MEAN CORPUSCULAR HGB CONC 31.8 g/dL (33.0-36.5); MEAN CORPUSCULAR VOLUME 94.1 FL (78-98); MEAN PLATELET VOLUME 9.3 FL (7.4-10.4); MONOCYTES # (AUTO) 0.5 X10'3 (0-0.9); MONOCYTES % (AUTO) 7.8 % (2-12); NEUTROPHILS # (AUTO) 3.8 X10'3 (1.8-7.7); NEUTROPHILS % (AUTO) 65.5 % (42-75); PLATELET COUNT 55 X10'3 (140-440); RED BLOOD COUNT 3.19 X10'6 (4.70-6.10); RED CELL DISTRIBUTION WIDTH 23.7 % (11.5-14.5); WHITE BLOOD COUNT 5.9 X10'3 (4.5-11.0)
[2022-01-26 06:55] LABS: ALANINE AMINOTRANSFERASE 55 U/L (12-78); ALBUMIN 1.5 G/DL (3.4-5.0); ALBUMIN/GLOBULIN RATIO 0.3 (1.1-1.5); ALKALINE PHOSPHATASE 115 IU/L (46-116); ANION GAP 10 (8-16); ASPARTATE AMINO TRANSFERASE 103 U/L (10-37); BLOOD UREA NITROGEN 49 MG/DL (7-18); BUN/CREATININE RATIO 27.8 (5.4-32.0); CALCIUM 7.8 MG/DL (8.5-10.1); CHLORIDE 104 MMOL/L (99-107); CREATININE 1.76 MG/DL (0.60-1.10); MAGNESIUM 1.6 MG/DL (1.5-2.4); PHOSPHORUS 4.1 MG/DL (2.3-4.5); POTASSIUM 3.8 MMOL/L (3.5-5.1); SODIUM 138 MMOL/L (135-145); TOTAL CARBON DIOXIDE 23.8 MMOL/L (24-32); TOTAL PROTEIN 7.4 G/DL (6.4-8.2); eGFR 47 ML/MIN
[2022-01-26 06:56] LABS: GLUCOSE 67 MG/DL (70-104)
[2022-01-26] MEDS: K and/or MAG REPLACEMENT MC SCH ×2 (07:16→20:00)
[2022-01-26] MEDS: carvedilol 6.25mg tablet PO SCH ×2 (08:00→20:00)
[2022-01-26] MEDS: lisinopril 2.5mg tablet PO SCH (08:00)
[2022-01-26] MEDS: furosemide 40mg tablet PO SCH (08:00)
[2022-01-26] MEDS: aspirin 81mg, enteric-coated 1 TAB TABLET.DR PO SCH (08:27)
[2022-01-26] MEDS: potassium chloride 10mEq ER tablet PO SCH (08:27)
[2022-01-26] MEDS: pantoprazole 40mg Tablet.DR PO SCH (08:27)
[2022-01-26] MEDS: methadone 10mg tablet PO SCH (08:27)
[2022-01-26] MEDS: DOXYCYCLINE 100MG CAPSULE PO SCH ×2 (08:27→20:44)
[2022-01-26] MEDS: docusate sod 100mg capsule PO SCH ×2 (08:27→20:44)
[2022-01-26] MEDS: vitamin A & D ointment-NF 1 APPLIC TUBE TP SCH (08:32)
[2022-01-26 11:00] VITALS: BP 81/54
--- NOTE | 2022-01-26 12:28 | NUR ---
F/u for malnutrition consult: TC to patient's mother who reports pt lost 15 lbs in about six weeks with a scaled weight of 184 lbs taken at PCP the before last. Current scaled wt is 179.3 lbs and pt with scaled wt h/o 190 lbs at previous admit 11/23/21. Patient's mom states pt usually weighs around 190-200 lbs though unsure of the last time pt weighed that. Unsure of actual wt loss d/t documented current scaled wt and scaled wt hx per EMR not consistent with reported wt loss. 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 Mother states a few days SENIOR INTEGRATION DEVELOPER pt wouldn't consume anything and prior to that was eating in small increments and supplementing with Fairlife drinks. Given uncertainty of wt and PO hx, pt meets criteria for non-severe malnutrition with decreased muscle strength and BLE 2+ edema. Will monitor further criteria for malnutrition as pt at a high risk given poor PO intake since admit thus far. However, despite documented 25% PO intake of dinner 01/25 patient's mother reports pt ate almost 100% of fish and crackers at dinner. Mother states pt requesting Ensure, recommend Ensure Enlive TID pending physician approval in EMR. Patient's mother provided with RD contact information and encouraged to reach out if needed. 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 LBM 01/23, receiving routine bowel care. Will continue to follow closely. Recommendations: 1) Continue heart healthy diet with 2L fluid restriction per MD 2) Encourage PO intake and honor food preferences: no brown gravy; Chocolate or strawberry Ensure Enlive TID, pending physician approval in EMR 3) Routine bowel care 4) Daily scaled weights per rx Addendum: 01/26/22 at [address] Amended: Links added.
[2022-01-26] MEDS: lactose-reduced food (Ensure Enlive) - 237ml bottle PO SCH (13:00)
[2022-01-26 15:00] VITALS: BP 100/67
[2022-01-26 18:00] VITALS: BP 85/62
--- NOTE | 2022-01-26 18:53 | NUR ---
Patient in room U 3028. I have received report from FELICIA HELMS and had the opportunity to ask questions and assume patient care. Addendum: 01/26/22 at 1854 by Yuly Braswell RN Amended: Links added.
[2022-01-26 22:00] VITALS: BP 98/72
--- NOTE | 2022-01-26 23:20 | NUR ---
Problems reprioritized. Patient report given, questions answered & plan of care reviewed with FELICIA RAMIREZ. Addendum: 01/27/22 at 0027 by Yuly Braswell RN Amended: Links added.
[2022-01-26] MEDS ORDERED: dextrose 50%-water 50ml dispensing syringe IV ONE (23:39)
--- NOTE | 2022-01-27 00:09 | NUR ---
pt appeared lethargic during the shift, blood glucose checked and found to be 30. hypoglycemia protocol initiated, 1 amp of D50 administered. Upon recheck, blood glucose 70. notified.
[2022-01-27] MEDS ORDERED: glucagon, human recombinant 1mg kit SUBCUT PRN ×2 (00:15→08:05)
[2022-01-27] MEDS ORDERED: DEXTROSE 15 GM of carb/4 tabs (each vial/BOTTLE has 4 tablets) PO PRN ×2 (00:15)
[2022-01-27] MEDS: dextrose 50%-water 50ml dispensing syringe IV PRN ×6 (01:34→17:45)
[2022-01-27 02:00] VITALS: BP 94/73
--- NOTE | 2022-01-27 07:01 | NUR ---
Patient refused vitals this morning.
--- NOTE | 2022-01-27 07:05 | NUR ---
Patient in room PCU 3028. I have received report from Dionisio DUARTE and had the opportunity to ask questions and assume patient care.
[2022-01-27 07:28] LABS: BASOPHILS % (AUTO) 0.3 % (0-1); EOSINOPHILS % (AUTO) 0.7 % (0-6); HEMATOCRIT 37.1 % (42.0-52.0); HEMOGLOBIN 11.4 g/dl (14.0-17.9); LYMPHOCYTES # (AUTO) 1.9 X10'3 (1.1-4.8); MEAN CORPUSCULAR HEMOGLOBIN 29.5 PG (27.0-31.0); MEAN CORPUSCULAR HGB CONC 30.7 g/dL (33.0-36.5); MEAN CORPUSCULAR VOLUME 96.2 FL (78-98); MEAN PLATELET VOLUME 9.6 FL (7.4-10.4); MONOCYTES # (AUTO) 0.4 X10'3 (0-0.9); NEUTROPHILS # (AUTO) 2.9 X10'3 (1.8-7.7); PLATELET COUNT 73 X10'3 (140-440); RED BLOOD COUNT 3.85 X10'6 (4.70-6.10); RED CELL DISTRIBUTION WIDTH 24.6 % (11.5-14.5); WHITE BLOOD COUNT 5.3 X10'3 (4.5-11.0)
[2022-01-27 07:33] LABS: ALANINE AMINOTRANSFERASE 64 U/L (12-78); ALBUMIN 1.7 G/DL (3.4-5.0); ALBUMIN/GLOBULIN RATIO 0.3 (1.1-1.5); ALKALINE PHOSPHATASE 117 IU/L (46-116); ANION GAP 16 (8-16); ASPARTATE AMINO TRANSFERASE 113 U/L (10-37); BILIRUBIN,TOTAL 3.4 MG/DL (0.1-1.0); BLOOD UREA NITROGEN 57 MG/DL (7-18); BUN/CREATININE RATIO 30.6 (5.4-32.0); CALCIUM 8.2 MG/DL (8.5-10.1); CHLORIDE 102 MMOL/L (99-107); CREATININE 1.86 MG/DL (0.60-1.10); PHOSPHORUS 4.8 MG/DL (2.3-4.5); POTASSIUM 4.4 MMOL/L (3.5-5.1); SODIUM 136 MMOL/L (135-145); TOTAL CARBON DIOXIDE 17.7 MMOL/L (24-32); TOTAL PROTEIN 8.5 G/DL (6.4-8.2); eGFR 44 ML/MIN
[2022-01-27 07:38] LABS: GLUCOSE 31 MG/DL (70-104)
--- NOTE | 2022-01-27 07:56 | NUR ---
PAGER ID: [phone] MESSAGE: Hugo PCU [id number] re: [id number] Kailyn Palumbo Patient had a lab glucose of 31 and point of care glucose of 15, gave patient 1/2 amp d50, could I add on the full amp for hypoglycemia as well Thanks Hugo.
[2022-01-27] MEDS: carvedilol 6.25mg tablet PO SCH ×2 (08:00→22:03)
[2022-01-27] MEDS: vitamin A & D ointment-NF 1 APPLIC TUBE TP SCH (08:00)
[2022-01-27] MEDS: lisinopril 2.5mg tablet PO SCH (08:00)
[2022-01-27] MEDS: K and/or MAG REPLACEMENT MC SCH ×2 (08:00→20:00)
[2022-01-27] MEDS: docusate sod 100mg capsule PO SCH ×2 (08:00→22:01)
[2022-01-27] MEDS: aspirin 81mg, enteric-coated 1 TAB TABLET.DR PO SCH (08:00)
[2022-01-27] MEDS: potassium chloride 10mEq ER tablet PO SCH (08:00)
[2022-01-27] MEDS: methadone 10mg tablet PO SCH (08:00)
[2022-01-27] MEDS ORDERED: insulin Lispro (HumaLOG) vial - multi-dose SQ SCH (08:05)
[2022-01-27 09:51] LABS: NUCLEATED RED BLOOD CELLS 1 /100WBC (0-0); TOTAL CELLS COUNTED 100
[2022-01-27 09:53] LABS: ANISOCYTOSIS 3+; ELLIPTOCYTES FEW; HYPOCHROMASIA 1+; PLATELET ESTIMATE DECREASED; POLYCHROMASIA FEW; TEAR DROP CELLS FEW
[2022-01-27 10:11] LABS: HEMOGLOBIN A1C 5.2 % (4.5-6.2)
[2022-01-27] MEDS: DOXYCYCLINE 100MG CAPSULE PO SCH ×2 (10:40→22:01)
[2022-01-27] MEDS: furosemide 40mg tablet PO SCH (10:46)
[2022-01-27] MEDS: pantoprazole 40mg Tablet.DR PO SCH (10:48)
[2022-01-27 11:00] VITALS: BP 94/73
--- NOTE | 2022-01-27 11:40 | NUR ---
PAGER ID: [phone] MESSAGE: Hugo U [id number] re: [id number] chay Palumbo Patient experiences panic/anxiety at time, is there any medications you would like to add for this? Thanks Hugo.
--- NOTE | 2022-01-27 13:31 | NUR ---
PAGER ID: [phone] MESSAGE: Hugo PCU [id number] re: [id number] Kailyn Palumbo Patient is very anxious, and blood sugars continue to be low, Lunch was 61 glucose and treated with 1/2 amp came up to 80. thanks Hugo.
[2022-01-27 15:00] VITALS: BP 93/70
--- NOTE | 2022-01-27 15:00 | NUR ---
Attempted to do dressing change at this time, patient was not able to lay down to complete the dressing change on bilateral legs during this time.
--- NOTE | 2022-01-27 17:56 | NUR ---
PAGER ID: [phone] MESSAGE: Hugo Sridhar [phone] re: [id number] Kailyn Palumbo Patient is still having recurrent drops in blood glucose. His 1700 glucose was 27 and treated him with 1 amp did you want to add maintenance fluids?
--- NOTE | 2022-01-27 18:21 | NUR ---
Patient had refused his 1800 VS.
--- NOTE | 2022-01-27 18:50 | NUR ---
Patient in room PCU 3028. I have received report from Hugo DUARTE and had the opportunity to ask questions and assume patient care.
[2022-01-27] MEDS: dextrose 5%-1/2 normal saline 1,000 ML IV SCH (19:11)
--- NOTE | 2022-01-27 19:46 | NUR ---
Problems reprioritized. Patient report given, questions answered & plan of care reviewed with Lisa DUARTE.
[2022-01-27] MEDS: insulin glargine (Lantus) pen - multi-dose SQ SCH (21:00)
[2022-01-27] MEDS: furosemide 40mg/4ml inj IV SCH (22:03)
[2022-01-27 23:00] VITALS: BP 86/60
[2022-01-28 03:30] VITALS: BP 85/61
[2022-01-28 05:30] VITALS: BP 95/72
[2022-01-28] MEDS: dextrose 5%-1/2 normal saline 1,000 ML IV SCH ×2 (05:30→20:40)
--- NOTE | 2022-01-28 05:30 | NUR ---
Patient had lowered BP of 85/61, HR 88. Bolus 250cc per protocol and came up to 95/72, HR 84. Wound care done in early hours of shift. Pictures in chart. Had difficult time getting a temp on patient ,finally this AM was 96.1 Axillary. Pt. was put on oxygen during NOC shift due to varying o2 sats, and pt. not able to take deep breaths. Patient just very fatigued.
[2022-01-28 06:00] VITALS: BP 132/75
[2022-01-28 07:22] LABS: BASOPHILS % (AUTO) 0.3 % (0-1); EOSINOPHILS % (AUTO) 0.4 % (0-6); HEMATOCRIT 31.6 % (42.0-52.0); HEMOGLOBIN 9.7 g/dl (14.0-17.9); LYMPHOCYTES # (AUTO) 1.9 X10'3 (1.1-4.8); LYMPHOCYTES % (AUTO) 30.5 % (21-51); MEAN CORPUSCULAR HGB CONC 30.7 g/dL (33.0-36.5); MEAN CORPUSCULAR VOLUME 97.8 FL (78-98); MEAN PLATELET VOLUME 8.9 FL (7.4-10.4); MONOCYTES # (AUTO) 0.4 X10'3 (0-0.9); MONOCYTES % (AUTO) 6.9 % (2-12); NEUTROPHILS # (AUTO) 3.9 X10'3 (1.8-7.7); NEUTROPHILS % (AUTO) 61.9 % (42-75); PLATELET COUNT 63 X10'3 (140-440); RED BLOOD COUNT 3.22 X10'6 (4.70-6.10); RED CELL DISTRIBUTION WIDTH 23.9 % (11.5-14.5); WHITE BLOOD COUNT 6.3 X10'3 (4.5-11.0)
[2022-01-28 07:45] LABS: ALANINE AMINOTRANSFERASE 56 U/L (12-78); ALBUMIN 1.5 G/DL (3.4-5.0); ALBUMIN/GLOBULIN RATIO 0.2 (1.1-1.5); ALKALINE PHOSPHATASE 103 IU/L (46-116); ANION GAP 14 (8-16); ASPARTATE AMINO TRANSFERASE 95 U/L (10-37); BLOOD UREA NITROGEN 60 MG/DL (7-18); BUN/CREATININE RATIO 30.6 (5.4-32.0); CALCIUM 7.9 MG/DL (8.5-10.1); CHLORIDE 102 MMOL/L (99-107); CREATININE 1.96 MG/DL (0.60-1.10); GLUCOSE 83 MG/DL (70-104); MAGNESIUM 1.7 MG/DL (1.5-2.4); PHOSPHORUS 4.8 MG/DL (2.3-4.5); SODIUM 135 MMOL/L (135-145); TOTAL CARBON DIOXIDE 19.1 MMOL/L (24-32); TOTAL PROTEIN 7.8 G/DL (6.4-8.2); eGFR 42 ML/MIN
[2022-01-28 07:46] LABS: POTASSIUM 4.1 MMOL/L (3.5-5.1)
[2022-01-28] MEDS: vitamin A & D ointment-NF 1 APPLIC TUBE TP SCH (08:00)
[2022-01-28] MEDS: K and/or MAG REPLACEMENT MC SCH ×2 (08:00→20:00)
[2022-01-28 08:28] LABS: ANISOCYTOSIS 3+; ELLIPTOCYTES FEW; PLATELET ESTIMATE DECREASED; TEAR DROP CELLS FEW
[2022-01-28] MEDS: DOXYCYCLINE 100MG CAPSULE PO SCH ×2 (09:08→20:00)
[2022-01-28] MEDS: methadone 10mg tablet PO SCH (09:08)
[2022-01-28] MEDS: pantoprazole 40mg Tablet.DR PO SCH (09:08)
[2022-01-28] MEDS: carvedilol 6.25mg tablet PO SCH ×2 (09:08→20:00)
[2022-01-28] MEDS: potassium chloride 10mEq ER tablet PO SCH (09:08)
[2022-01-28] MEDS: aspirin 81mg, enteric-coated 1 TAB TABLET.DR PO SCH (09:08)
[2022-01-28] MEDS: docusate sod 100mg capsule PO SCH ×2 (09:08→20:00)
[2022-01-28] MEDS: lisinopril 2.5mg tablet PO SCH (09:09)
[2022-01-28] MEDS: furosemide 40mg/4ml inj IV SCH ×2 (09:12→20:00)
[2022-01-28 15:00] VITALS: BP 109/73
--- NOTE | 2022-01-28 18:25 | NUR ---
Patient in room PCU 3028. I have received report from Stella DUARTE and had the opportunity to ask questions and assume patient care.
[2022-01-28 19:00] VITALS: BP 87/66
[2022-01-28] MEDS: insulin glargine (Lantus) pen - multi-dose SQ SCH (21:00)
[2022-01-28 22:00] VITALS: BP 111/79
[2022-01-29 02:00] VITALS: BP 101/68
--- NOTE | 2022-01-29 05:34 | NUR ---
At around 2230 last night this nurse noted that the IV tubing had been disconnected and was on the floor. When asked about it, patient stated that he had done it because he was fed up with it. Dressing to L ej not secure and when IV flushed, it leaked. @ nurses managed to remove the old dressing/tape and then flushed again. IV leaked and came out. brigadier aware as pt. needs d5 1/2 NS , Unfortunately, there was no-one available to place another EJ. Patients blood sugar at 0200 was 82. Addendum: 01/29/22 at 0606 by Lisa Wilder RN Patient also verbalized that he is getting fed up with the leg wraps over the wound care. Asked him NOT to pull these off.
[2022-01-29 06:00] VITALS: BP 101/72
[2022-01-29 06:55] LABS: BASOPHILS # (AUTO) 0.1 X10'3 (0-0.2); BASOPHILS % (AUTO) 1.1 % (0-1); EOSINOPHILS # (AUTO) 0.1 X10'3 (0-0.9); EOSINOPHILS % (AUTO) 1.7 % (0-6); HEMATOCRIT 30.4 % (42.0-52.0); HEMOGLOBIN 9.8 g/dl (14.0-17.9); LYMPHOCYTES # (AUTO) 1.1 X10'3 (1.1-4.8); LYMPHOCYTES % (AUTO) 18.5 % (21-51); MEAN CORPUSCULAR HEMOGLOBIN 29.5 PG (27.0-31.0); MEAN CORPUSCULAR HGB CONC 32.2 g/dL (33.0-36.5); MEAN CORPUSCULAR VOLUME 91.5 FL (78-98); MEAN PLATELET VOLUME 8.8 FL (7.4-10.4); MONOCYTES # (AUTO) 0.3 X10'3 (0-0.9); MONOCYTES % (AUTO) 4.7 % (2-12); NEUTROPHILS # (AUTO) 4.6 X10'3 (1.8-7.7); PLATELET COUNT 75 X10'3 (140-440); RED BLOOD COUNT 3.32 X10'6 (4.70-6.10); RED CELL DISTRIBUTION WIDTH 23.5 % (11.5-14.5); WHITE BLOOD COUNT 6.2 X10'3 (4.5-11.0)
--- NOTE | 2022-01-29 06:56 | NUR ---
Problems reprioritized. Patient report given, questions answered & plan of care reviewed with Stella DUARTE.
[2022-01-29 07:10] LABS: ALANINE AMINOTRANSFERASE 49 U/L (12-78); ALBUMIN 1.5 G/DL (3.4-5.0); ALBUMIN/GLOBULIN RATIO 0.3 (1.1-1.5); ALKALINE PHOSPHATASE 100 IU/L (46-116); ANION GAP 11 (8-16); ASPARTATE AMINO TRANSFERASE 79 U/L (10-37); BILIRUBIN,TOTAL 2.7 MG/DL (0.1-1.0); BLOOD UREA NITROGEN 58 MG/DL (7-18); BUN/CREATININE RATIO 36.9 (5.4-32.0); CALCIUM 7.7 MG/DL (8.5-10.1); CHLORIDE 102 MMOL/L (99-107); CREATININE 1.57 MG/DL (0.60-1.10); PHOSPHORUS 3.6 MG/DL (2.3-4.5); SODIUM 138 MMOL/L (135-145); TOTAL CARBON DIOXIDE 25.2 MMOL/L (24-32); TOTAL PROTEIN 7.5 G/DL (6.4-8.2); eGFR 54 ML/MIN
[2022-01-29 07:11] LABS: GLUCOSE 74 MG/DL (70-104); POTASSIUM 3.1 MMOL/L (3.5-5.1)
[2022-01-29] MEDS: aspirin 81mg, enteric-coated 1 TAB TABLET.DR PO SCH (08:00)
[2022-01-29] MEDS: vitamin A & D ointment-NF 1 APPLIC TUBE TP SCH (08:00)
[2022-01-29] MEDS: docusate sod 100mg capsule PO SCH ×2 (08:00→20:54)
[2022-01-29] MEDS: potassium chloride 10mEq ER tablet PO SCH (08:00)
[2022-01-29] MEDS: pantoprazole 40mg Tablet.DR PO SCH (08:00)
[2022-01-29] MEDS: K and/or MAG REPLACEMENT MC SCH ×2 (08:00→20:00)
[2022-01-29] MEDS: lisinopril 2.5mg tablet PO SCH (08:00)
[2022-01-29] MEDS: furosemide 40mg/4ml inj IV SCH (08:00)
[2022-01-29] MEDS: carvedilol 6.25mg tablet PO SCH ×2 (08:00→20:00)
[2022-01-29] MEDS: DOXYCYCLINE 100MG CAPSULE PO SCH ×2 (08:00→20:54)
[2022-01-29] MEDS: methadone 10mg tablet PO SCH (08:00)
--- NOTE | 2022-01-29 09:30 | NUR ---
Reassessment: Pt continues on Heart Healthy diet w/ 2L fluid restriction w/ poor PO intake, mostly 0-25% of meals not meeting needs. Ensure Enlive remains unverified in EMR though pt can still benefit from them. Pt could benefit from nutrition support given malnutrition status and poor PO. LBM 01/23 receiving routine colace; recommend additional bowel care if MD agreeable. Will continue to monitor. Recommendations: 1) Continue heart healthy diet with 2L fluid restriction per MD 2) Encourage PO intake and honor food preferences: no brown gravy; Chocolate or strawberry Ensure Enlive TID, pending physician approval in EMR 3) Routine bowel care; 6 days constipation 4) Daily scaled weights per rx 5) Consider initiation of TF given malnutrition status and poor PO Addendum: 01/29/22 at [address] Amended: Links added.
[2022-01-29] MEDS: dextrose 5%-1/2 normal saline 1,000 ML IV SCH ×2 (10:00→23:20)
[2022-01-29 11:00] VITALS: BP 90/64
--- NOTE | 2022-01-29 11:30 | NUR ---
Attempted to place peripheral IV, unsucessful attempts x 2, page to ER for assistance.
[2022-01-29 15:00] VITALS: BP 88/60
--- NOTE | 2022-01-29 16:02 | NUR ---
WOUND INFECTION EDUCATION PROVIDED BY WOUND CARE 1. Patient instructed to call their primary doctor, or go the ED immediately if any of the following symptoms occur: * Increased pain in wound * Increase in drainage from the wound * Redness in the skin surrounding the wound * Warmth in the skin surrounding the wound * Bleeding from the wound * Temperature of 101 or greater 2. If any of these occur while in the hospital tell a nurse immediately. Addendum: 01/29/22 at 1602 by Stella Patel LVN Amended: Links added.
[2022-01-29 18:00] VITALS: BP 112/76
[2022-01-29] MEDS: lactose-reduced food (Ensure Enlive) - 237ml bottle PO SCH (18:00)
--- NOTE | 2022-01-29 18:35 | NUR ---
Patient in room PCU 3028. I have received report from Stella DUARTE and had the opportunity to ask questions and assume patient care.
--- NOTE | 2022-01-29 19:00 | NUR ---
Patient had eaten janett that family had brought in for him Addendum: 01/30/22 at 0142 by Lisa Wilder RN Amended: Links added.
[2022-01-29] MEDS ORDERED: magnesium 2GM in 50ml NS 50 ML IV PRN (20:15)
[2022-01-29] MEDS ORDERED: magnesium 4gm in 100ml NS 100 ML IV PRN (20:15)
[2022-01-29] MEDS ORDERED: magnesium Cl slow-release 64mg tablet PO PRN (20:15)
[2022-01-29] MEDS ORDERED: POTASSIUM BICARB 20meq eff tab 20 MEQ TABLET.EFF PO PRN (20:15)
[2022-01-29] MEDS: furosemide 40mg tablet PO SCH (20:25)
[2022-01-29] MEDS: insulin glargine (Lantus) pen - multi-dose SQ SCH (21:00)
[2022-01-29 22:00] VITALS: BP 118/81
[2022-01-30 02:00] VITALS: BP 105/75
--- NOTE | 2022-01-30 02:21 | NUR ---
Patient has refused his 2nd potassium replacement, and has still only drank half of the 1st effer K.
--- NOTE | 2022-01-30 02:25 | NUR ---
Coreg and lasix were held this evening d/t decreased BP of 91/59, 91
--- NOTE | 2022-01-30 02:30 | NUR ---
0200 accu check = 103
[2022-01-30 06:00] VITALS: BP 112/75
--- NOTE | 2022-01-30 06:34 | NUR ---
Called MD to get effer K replaced to PO replacement as patient not drinking it. Will put order in.
--- NOTE | 2022-01-30 06:35 | NUR ---
Problems reprioritized. Patient report given, questions answered & plan of care reviewed with Stella DUARTE.
[2022-01-30] MEDS ORDERED: potassium chloride 10mEq ER tablet PO PRN (07:00)
[2022-01-30] MEDS: K and/or MAG REPLACEMENT MC SCH ×4 (08:00→20:00)
[2022-01-30] MEDS: docusate sod 100mg capsule PO SCH ×2 (08:00→20:00)
[2022-01-30] MEDS: lactose-reduced food (Ensure Enlive) - 237ml bottle PO SCH ×3 (08:00→18:00)
[2022-01-30] MEDS: methadone 10mg tablet PO SCH (08:00)
[2022-01-30] MEDS: vitamin A & D ointment-NF 1 APPLIC TUBE TP SCH (08:00)
[2022-01-30] MEDS: POTASSIUM BICARB 20meq eff tab 20 MEQ TABLET.EFF PO PRN ×2 (09:34→18:21)
[2022-01-30] MEDS: DOXYCYCLINE 100MG CAPSULE PO SCH ×4 (09:34→21:46)
[2022-01-30] MEDS: pantoprazole 40mg Tablet.DR PO SCH (09:35)
[2022-01-30] MEDS: potassium chloride 10mEq ER tablet PO SCH (09:35)
[2022-01-30] MEDS: furosemide 40mg tablet PO SCH ×2 (09:35→20:00)
[2022-01-30] MEDS: lisinopril 2.5mg tablet PO SCH (09:35)
[2022-01-30] MEDS: aspirin 81mg, enteric-coated 1 TAB TABLET.DR PO SCH (09:35)
[2022-01-30] MEDS: carvedilol 6.25mg tablet PO SCH ×2 (09:36→20:00)
--- NOTE | 2022-01-30 10:18 | NUR ---
PAGE TO PICC RN [id number] LUZ MARIA. PT HAS NOT HAS PIV FOR DAYS. PLEASE PLACE EXTENDED WHEN YOU ARE ABLE. THANKS [phone]
[2022-01-30 11:00] VITALS: BP 104/79
[2022-01-30] MEDS: dextrose 5%-1/2 normal saline 1,000 ML IV SCH (12:39)
--- NOTE | 2022-01-30 12:52 | NUR ---
MidLine placed, IV fluids restarted.
--- NOTE | 2022-01-30 15:31 | NUR ---
Pt states he wants to leave, pt understands that if he leaves he will , Mother is at bedside trying to convince him to stay. This RN suggested a "pain" pill to help him relax. He agreed to take it and said he will give it one hour, if he doesn't feel better in one hr he is going to leave. Paged SW to come evaluate pt for 510 hold for possible SI
--- NOTE | 2022-01-30 16:21 | NUR ---
After talk with CAPRICE pt states he will stay in the hospital.
[2022-01-30 18:00] VITALS: BP 94/68
[2022-01-30] MEDS: insulin glargine (Lantus) pen - multi-dose SQ SCH (21:00)
[2022-01-31] MEDS: dextrose 5%-1/2 normal saline 1,000 ML IV SCH (00:47)
[2022-01-31 06:00] VITALS: BP 102/65
[2022-01-31 06:10] LABS: BASOPHILS % (AUTO) 0.2 % (0-1); EOSINOPHILS # (AUTO) 0.1 X10'3 (0-0.9); HEMATOCRIT 27.4 % (42.0-52.0); HEMOGLOBIN 8.9 g/dl (14.0-17.9); LYMPHOCYTES # (AUTO) 1.7 X10'3 (1.1-4.8); MEAN CORPUSCULAR HEMOGLOBIN 29.4 PG (27.0-31.0); MEAN CORPUSCULAR HGB CONC 32.5 g/dL (33.0-36.5); MEAN CORPUSCULAR VOLUME 90.5 FL (78-98); MEAN PLATELET VOLUME 7.5 FL (7.4-10.4); MONOCYTES # (AUTO) 0.3 X10'3 (0-0.9); MONOCYTES % (AUTO) 4.7 % (2-12); NEUTROPHILS # (AUTO) 4.6 X10'3 (1.8-7.7); NEUTROPHILS % (AUTO) 68.1 % (42-75); PLATELET COUNT 83 X10'3 (140-440); RED BLOOD COUNT 3.03 X10'6 (4.70-6.10); RED CELL DISTRIBUTION WIDTH 23.5 % (11.5-14.5); WHITE BLOOD COUNT 6.8 X10'3 (4.5-11.0)
[2022-01-31 06:27] LABS: ALANINE AMINOTRANSFERASE 45 U/L (12-78); ALBUMIN 1.5 G/DL (3.4-5.0); ALBUMIN/GLOBULIN RATIO 0.3 (1.1-1.5); ALKALINE PHOSPHATASE 114 IU/L (46-116); ANION GAP 4 (8-16); ASPARTATE AMINO TRANSFERASE 56 U/L (10-37); BILIRUBIN,TOTAL 1.9 MG/DL (0.1-1.0); BLOOD UREA NITROGEN 40 MG/DL (7-18); BUN/CREATININE RATIO 30.5 (5.4-32.0); CHLORIDE 105 MMOL/L (99-107); CREATININE 1.31 MG/DL (0.60-1.10); GLUCOSE 81 MG/DL (70-104); SODIUM 140 MMOL/L (135-145); TOTAL CARBON DIOXIDE 30.6 MMOL/L (24-32); TOTAL PROTEIN 7.2 G/DL (6.4-8.2); eGFR 66 ML/MIN
[2022-01-31 06:31] LABS: POTASSIUM 2.8 MMOL/L (3.5-5.1)
[2022-01-31] MEDS: furosemide 40mg tablet PO SCH (08:00)
[2022-01-31] MEDS: carvedilol 6.25mg tablet PO SCH (08:00)
[2022-01-31] MEDS: potassium chloride 10mEq ER tablet PO SCH (08:00)
[2022-01-31] MEDS: lactose-reduced food (Ensure Enlive) - 237ml bottle PO SCH ×2 (08:00→13:00)
[2022-01-31] MEDS: methadone 10mg tablet PO SCH (08:00)
[2022-01-31] MEDS: lisinopril 2.5mg tablet PO SCH (08:00)
[2022-01-31] MEDS: DOXYCYCLINE 100MG CAPSULE PO SCH (08:00)
[2022-01-31] MEDS: aspirin 81mg, enteric-coated 1 TAB TABLET.DR PO SCH (08:00)
[2022-01-31] MEDS: pantoprazole 40mg Tablet.DR PO SCH (08:00)
[2022-01-31] MEDS: K and/or MAG REPLACEMENT MC SCH ×2 (08:00)
[2022-01-31] MEDS: docusate sod 100mg capsule PO SCH (08:00)
[2022-01-31] MEDS: vitamin A & D ointment-NF 1 APPLIC TUBE TP SCH (08:00)
[2022-01-31] MEDS: potassium CL 10mEq/100ml bag 100 ML IV PRN ×2 (08:16→13:26)
[2022-01-31] MEDS ORDERED: ONDA4TAB12 PO (10:49)
[2022-01-31] MEDS ORDERED: SPIR25TA5 PO (10:49)
[2022-01-31] MEDS ORDERED: Vitamins A And D TP (10:49)
[2022-01-31 11:00] VITALS: BP 125/67
[2022-01-31 15:00] VITALS: BP 104/66
--- NOTE | 2022-01-31 15:16 | NUR ---
Wound RN stated pictures not needed Addendum: 01/31/22 at 1516 by Stella Jones RN Amended: Links added.
== END 2022-01-31 16:31 | disposition home health service (06) | DRG 432 ==
LOC: ER 17:53 → ED HOLD 01-24 10:10 → PCU 3S 01-24 16:58
PROVIDERS: ADMIT Family Medicine; ATTEND Family Medicine
PROC: 0W9G3ZX Drainage of Peritoneal Cavity, Percutaneous Approach, Diagnostic (ICD-10-PCS; principal; 2022-01-25)
DX: K74.60 Unspecified cirrhosis of liver (principal); I50.23 Acute on chronic systolic (congestive) heart failure; E87.1 Hypo-osmolality and hyponatremia; I42.7 Cardiomyopathy due to drug and external agent; R18.8 Other ascites; R64 Cachexia; N17.9 Acute kidney failure, unspecified; K72.10 Chronic hepatic failure without coma; N18.9 Chronic kidney disease, unspecified; L97.529 Non-pressure chronic ulcer of other part of left foot with unspecified severity; L97.519 Non-pressure chronic ulcer of other part of right foot with unspecified severity; F12.90 Cannabis use, unspecified, uncomplicated; D64.9 Anemia, unspecified; D69.59 Other secondary thrombocytopenia; E16.2 Hypoglycemia, unspecified; F11.90 Opioid use, unspecified, uncomplicated; F17.210 Nicotine dependence, cigarettes, uncomplicated; F41.0 Panic disorder [episodic paroxysmal anxiety]; Z56.0 Unemployment, unspecified; Z68.25 Body mass index [BMI] 25.0-25.9, adult; Z79.899 Other long term (current) drug therapy
CPT/HCPCS: 36410; 36415; 49083; 71045; 76705; 76937; 80053; 80305; 80320; 81001; 82140; 82945; 82948; 83036; 83615; 83690; 83735; 83880; 84100; 84132; 84157; 85007; 85008; 85025; 85610; 85730; 87088; 89051; 93308; 94640; 94760; 97116; 97161; 97530; 99285; A4615; A4649; A6196; A6223; A6253; A6258; A6260; A6446; A6449; C1751; G0378; J1815; J1940; J3480; J3490; J7030; J7042

== ENCOUNTER 2022-04-08 02:08 | Inpatient (IN) | payer BC, MEDICAID ==
[~2022-04-08] VITALS: Ht 172.7 cm; Wt 100.0 kg
[~2022-04-08 02:08] MED LIST changes: +ALBU17AE26 PO; +ASPI-1397; +ONDA4TAB12 PO; +SPIR25TA5 PO; +Vitamins A And D TP
[2022-04-08] MEDS ORDERED: methadone 10mg tablet PO ONE (02:30)
[2022-04-08] MEDS ORDERED: spironolactone 25 MG tablet PO SCH (02:30)
[2022-04-08] MEDS ORDERED: carVEDilol 12.5mg tablet PO ONE (02:30)
[2022-04-08] MEDS ORDERED: furosemide 10 MG/1 ML 10ml inj IV ONE (02:45)
[2022-04-08 03:45] LABS: BASOPHILS % (AUTO) 0.8 % (0-1); EOSINOPHILS % (AUTO) 0.4 % (0-6); HEMATOCRIT 29.2 % (42.0-52.0); HEMOGLOBIN 9.5 g/dl (14.0-17.9); MEAN CORPUSCULAR HEMOGLOBIN 32.7 PG (27.0-31.0); MEAN CORPUSCULAR HGB CONC 32.5 g/dL (33.0-36.5); MEAN CORPUSCULAR VOLUME 100.3 FL (78-98); MEAN PLATELET VOLUME 8.7 FL (7.4-10.4); MONOCYTES # (AUTO) 0.4 X10'3 (0-0.9); MONOCYTES % (AUTO) 6.8 % (2-12); NEUTROPHILS # (AUTO) 4.4 X10'3 (1.8-7.7); PLATELET COUNT 104 X10'3 (140-440); RED BLOOD COUNT 2.91 X10'6 (4.70-6.10); RED CELL DISTRIBUTION WIDTH 21.2 % (11.5-14.5); WHITE BLOOD COUNT 5.9 X10'3 (4.5-11.0)
[2022-04-08 03:55] LABS: APTT 38 SECONDS (22-32)
[2022-04-08] MEDS ORDERED: potassium Cl 20 mEq SR tablet PO ONE (03:55)
[2022-04-08 03:58] LABS: ALANINE AMINOTRANSFERASE 11 U/L (12-78); ALBUMIN 1.6 G/DL (3.4-5.0); ALBUMIN/GLOBULIN RATIO 0.3 (1.1-1.5); ALKALINE PHOSPHATASE 76 IU/L (46-116); ANION GAP 7 (8-16); ASPARTATE AMINO TRANSFERASE 24 U/L (10-37); BILIRUBIN,TOTAL 2.2 MG/DL (0.1-1.0); BLOOD UREA NITROGEN 26 MG/DL (7-18); BUN/CREATININE RATIO 20.3 (5.4-32.0); CALCIUM 7.8 MG/DL (8.5-10.1); CHLORIDE 103 MMOL/L (99-107); CREATININE 1.28 MG/DL (0.60-1.10); GLUCOSE 73 MG/DL (70-104); POTASSIUM 4.3 MMOL/L (3.5-5.1); SODIUM 133 MMOL/L (135-145); TOTAL PROTEIN 7.3 G/DL (6.4-8.2); eGFR 67 ML/MIN
[2022-04-08 04:07] LABS: C-REACTIVE PROTEIN 8.82 MG/DL (0.0-0.5); MAGNESIUM 1.6 MG/DL (1.5-2.4)
[2022-04-08 04:16] LABS: ETHANOL < 0.010 GM/DL (0.0-0.010)
[2022-04-08 04:28] LABS: CLARITY,URINE CLEAR (Clear); COLOR,URINE YELLOW (Yellow); GLUCOSE, URINE NEGATIVE (Neg); KETONES,URINE NEGATIVE (Neg); LEUKOCYTE ESTERASE ,URINE NEGATIVE (Neg); NITRITES, URINE NEGATIVE (Neg); OCCULT BLOOD,URINE LARGE (Neg); PH,URINE 5.5 (4.8-8.0); PROTEIN,URINE NEGATIVE (Neg); UROBILINOGEN,URINE 0.2 E.U/dL (0.2-1.0)
[2022-04-08 04:34] LABS: UA COLLECTION TYPE NON-SPECIFIED
[2022-04-08 04:35] LABS: BACTERIA,URINE NONE SEEN /HPF (Neg); SQUAMOUS EPITHELIAL CELL,UR FEW /LPF (FEW); WBC,URINE NONE SEEN /HPF (0-4)
[2022-04-08 04:40] LABS: URINE AMPHETAMINE SCREEN NEGATIVE (Neg); URINE BARBITUATE SCREEN NEGATIVE (Neg); URINE BENZODIAZEPINES SCREEN NEGATIVE (Neg); URINE CANNABINOID SCREEN POSITIVE (Neg); URINE COCAINE SCREEN NEGATIVE (Neg); URINE METHADONE SCREEN POSITIVE (Neg); URINE OPIATE SCREEN NEGATIVE (Neg); URINE PHENCYCLIDINE SCREEN NEGATIVE (Neg)
[2022-04-08] MEDS ORDERED: bisacodyl 10mg suppository rectal RC PRN (04:40)
[2022-04-08] MEDS ORDERED: mag hydrox/Alum hydrox/simeth 30ml oral suspension PO PRN (04:40)
[2022-04-08] MEDS ORDERED: HYDROcodone/acetaminophen 5mg/325mg tablet PO PRN (04:40)
[2022-04-08] MEDS ORDERED: magnesium hydroxide 30ml (MOM) UD suspension PO PRN (04:40)
[2022-04-08] MEDS ORDERED: morphine 2 MG/ML inj. syringe IV PRN ×2 (04:40)
[2022-04-08] MEDS ORDERED: acetaminophen 325mg tablet PO PRN (04:40)
[2022-04-08] MEDS ORDERED: metoclopramide 5 mg/ml inj IV PRN (04:40)
[2022-04-08] MEDS ORDERED: diphenhydrAMINE 25mg capsule PO PRN (04:40)
[2022-04-08] MEDS ORDERED: normal saline 1000ml 1,000 ML IV SCH (04:40)
[2022-04-08] MEDS ORDERED: diphenhydrAMINE 50 mg/ml inj IV PRN (04:40)
[2022-04-08] MEDS ORDERED: HYDROmorphone inj. 0.5 MG/0.5 ML DISP.SYRIN IV PRN (04:40)
[2022-04-08] MEDS ORDERED: ondansetron/PF 4mg/2ml inj IV PRN (04:40)
[2022-04-08] MEDS ORDERED: ondansetron 4mg rapidly disintigrating tab PO PRN (04:40)
[2022-04-08 04:56] LABS: ANISOCYTOSIS 3+; PLATELET ESTIMATE DECREASED; POLYCHROMASIA FEW
[2022-04-08] MEDS ORDERED: EMPA10TA PO (05:06)
[2022-04-08] MEDS ORDERED: SACU1TAB PO (05:06)
[2022-04-08] MEDS ORDERED: METO-384 PO (05:06)
[2022-04-08 05:09] LABS: PHOSPHORUS 4.1 MG/DL (2.3-4.5)
[2022-04-08] MEDS ORDERED: ONDA4TAB12 PO (05:09)
[2022-04-08] MEDS ORDERED: SPIR25TA5 PO (05:10)
[2022-04-08] MEDS ORDERED: PETR113O TP (05:13)
[2022-04-08 05:19] LABS: D-DIMER 16.83 MG/L FEU (0-0.50)
[2022-04-08] MEDS: HYDROcodone/acetaminophen 10/325mg tab PO PRN ×2 (05:52→22:10)
[2022-04-08] MEDS ORDERED: furosemide 10 MG/1 ML 10ml inj IV SCH (08:00)
[2022-04-08] MEDS ORDERED: lisinopril 2.5mg tablet PO SCH (08:00)
[2022-04-08] MEDS: pantoprazole 40mg Tablet.DR PO SCH (08:00)
[2022-04-08] MEDS: potassium chloride 10mEq ER tablet PO SCH (08:00)
[2022-04-08] MEDS ORDERED: sacubitril/valsartan 24mg-26mg tablet PO SCH (08:00)
[2022-04-08] MEDS: aspirin 81mg, enteric-coated 1 TAB TABLET.DR PO SCH (08:00)
[2022-04-08] MEDS: carvedilol 6.25mg tablet PO SCH ×2 (08:00→20:00)
[2022-04-08] MEDS: spironolactone 25 MG tablet PO SCH (08:00)
[2022-04-08] MEDS ORDERED: nicotine 21mg patch - 24 hr TD ONE (08:00)
--- NOTE | 2022-04-08 08:30 | NUR ---
called hospitalist ida regarding concerns with ordered morning medications. tosha dodd also expressed concerns with the numerous interacting cardiac medicatinos. per ida, okay to give methadone and nicotine patch but hold off on other ordered medications until he reviews them. meds nonadministered as advised
[2022-04-08] MEDS: methadone 10mg tablet PO SCH (08:52)
[2022-04-08] MEDS: docusate sod 100mg capsule PO SCH ×2 (09:25→20:00)
[2022-04-08] MEDS: heparin, porcine 5000 units/ml vial SQ SCH ×2 (09:26→15:58)
[2022-04-08] MEDS: metoprolol succinate 25mg (24-HOUR) SR. Tablet PO SCH (09:26)
--- NOTE | 2022-04-08 09:55 | NUR ---
pt refused nuc med scan of lungs. dylan paged to inform
--- NOTE | 2022-04-08 10:13 | NUR ---
spoke with ida and received verbal order to hold all blood pressure meds at this time and give lasix 40mg iv bid first dose now. orders placed as received
[2022-04-08] MEDS: furosemide 40mg/4ml inj IV SCH ×2 (10:43→20:00)
[2022-04-08] MEDS ORDERED: iohexol 350MG/ML 100ml bottle IV ONE (12:07)
[2022-04-08 17:59] VITALS: BP 91/64
[2022-04-08 18:30] VITALS: BP 98/72
--- NOTE | 2022-04-08 18:45 | NUR ---
Problems reprioritized. Patient report given, questions answered & plan of care reviewed with LESVIA RN.
--- NOTE | 2022-04-08 19:30 | NUR ---
pt aware to use call light & not get out of bed without assistance Addendum: 04/09/22 at 0232 by Miracle Borges RN Amended: Links added.
[2022-04-08] MEDS ORDERED: temazepam 15mg capsule PO PRN (21:00)
[2022-04-08 23:15] VITALS: BP 97/65
[2022-04-09] MEDS: heparin, porcine 5000 units/ml vial SQ SCH ×3 (00:23→16:00)
[2022-04-09 03:00] VITALS: BP 93/60
--- NOTE | 2022-04-09 06:30 | NUR ---
REFUSED 0600 VITAL SIGNS Addendum: 04/09/22 at 1019 by Ana Maria Hummel RN Amended: Links added.
[2022-04-09 07:03] LABS: BASOPHILS % (AUTO) 0.4 % (0-1); EOSINOPHILS % (AUTO) 0.3 % (0-6); HEMATOCRIT 34.5 % (42.0-52.0); HEMOGLOBIN 10.7 g/dl (14.0-17.9); LYMPHOCYTES # (AUTO) 1.6 X10'3 (1.1-4.8); LYMPHOCYTES % (AUTO) 22.7 % (21-51); MEAN CORPUSCULAR HEMOGLOBIN 31.6 PG (27.0-31.0); MEAN CORPUSCULAR HGB CONC 30.9 g/dL (33.0-36.5); MEAN CORPUSCULAR VOLUME 102.3 FL (78-98); MEAN PLATELET VOLUME 9.1 FL (7.4-10.4); MONOCYTES # (AUTO) 0.6 X10'3 (0-0.9); MONOCYTES % (AUTO) 8.6 % (2-12); NEUTROPHILS # (AUTO) 4.8 X10'3 (1.8-7.7); PLATELET COUNT 122 X10'3 (140-440); RED BLOOD COUNT 3.38 X10'6 (4.70-6.10); RED CELL DISTRIBUTION WIDTH 21.9 % (11.5-14.5); WHITE BLOOD COUNT 7.1 X10'3 (4.5-11.0)
[2022-04-09 07:19] LABS: ALANINE AMINOTRANSFERASE 9 U/L (12-78); ALBUMIN 1.6 G/DL (3.4-5.0); ALBUMIN/GLOBULIN RATIO 0.3 (1.1-1.5); ANION GAP 10 (8-16); ASPARTATE AMINO TRANSFERASE 34 U/L (10-37); BLOOD UREA NITROGEN 35 MG/DL (7-18); BUN/CREATININE RATIO 25.2 (5.4-32.0); CALCIUM 7.7 MG/DL (8.5-10.1); CHLORIDE 103 MMOL/L (99-107); CREATININE 1.39 MG/DL (0.60-1.10); GLUCOSE 97 MG/DL (70-104); POTASSIUM 4.6 MMOL/L (3.5-5.1); SODIUM 134 MMOL/L (135-145); TOTAL CARBON DIOXIDE 20.7 MMOL/L (24-32); TOTAL PROTEIN 6.9 G/DL (6.4-8.2); eGFR 61 ML/MIN
[2022-04-09 07:37] LABS: ALKALINE PHOSPHATASE 65 IU/L (46-116)
[2022-04-09] MEDS: carvedilol 6.25mg tablet PO SCH (08:00)
[2022-04-09] MEDS: spironolactone 25 MG tablet PO SCH (08:00)
[2022-04-09] MEDS: potassium chloride 10mEq ER tablet PO SCH (08:00)
[2022-04-09] MEDS: aspirin 81mg, enteric-coated 1 TAB TABLET.DR PO SCH (08:00)
[2022-04-09] MEDS: docusate sod 100mg capsule PO SCH (08:00)
[2022-04-09] MEDS: metoprolol succinate 25mg (24-HOUR) SR. Tablet PO SCH (08:00)
[2022-04-09] MEDS: furosemide 40mg/4ml inj IV SCH (08:00)
[2022-04-09] MEDS ORDERED: LIDOcaine 1%/PF 5ML 10 MG/ML VIAL ONE (09:09)
[2022-04-09 09:20] VITALS: BP 110/74
[2022-04-09 09:41] VITALS: BP 88/56
[2022-04-09] MEDS ORDERED: albumin (human) 25% 100 ML IV solution IV ONE (09:50)
[2022-04-09 10:00] VITALS: BP 87/41
[2022-04-09] MEDS: pantoprazole 40mg Tablet.DR PO SCH (10:03)
[2022-04-09] MEDS: methadone 10mg tablet PO SCH (10:03)
[2022-04-09 13:32] VITALS: BP 94/63
--- NOTE | 2022-04-09 13:55 | NUR ---
Noted pt with a low Hank of 12 on admit, now up to 14. Per RN/TEXTILE COLORIST DYER skin assessment pt with two open wounds to RLE and one open wound to LLE. RD reviewed picture in chart, wounds appear closed. D/w bedside RN who reports wounds appeared closed during her assessment however wound care to visit pt for further assessment. No nutrition intervention implemented at this time. Will continue to follow. Addendum: 04/09/22 at [address] Amended: Links added.
--- NOTE | 2022-04-09 15:34 | NUR ---
WOUND INFECTION EDUCATION PROVIDED BY WOUND CARE 1. Patient instructed to call their primary doctor, or go the ED immediately if any of the following symptoms occur: * Increased pain in wound * Increase in drainage from the wound * Redness in the skin surrounding the wound * Warmth in the skin surrounding the wound * Bleeding from the wound * Temperature of 101 or greater 2. If any of these occur while in the hospital tell a nurse immediately. Addendum: 04/09/22 at 1535 by Stella Patel LVN Amended: Links added.
--- NOTE | 2022-04-09 16:40 | NUR ---
PATIENT STABLE AND APPROPRIATE FOR DISCHARGE HOME WITH MOTHER. IV REMOVED, JANITOR REMOVED. ALL DISCHARGE INSTRUCTIONS AND EDUCATION GIVEN AND REVIEWED WITH PATIENT, AND MOTHER. ALL QUESTIONS ANSWERED.
== END 2022-04-09 16:40 | disposition home health service (06) | DRG 441 ==
LOC: ER 02:08 → ED HOLD 04:44 → PCU 3S 17:30
PROVIDERS: ADMIT Family Medicine; ATTEND Family Medicine
PROC: B32T1ZZ Computerized Tomography (CT Scan) of Left Pulmonary Artery using Low Osmolar Contrast (ICD-10-PCS; 2022-04-08)
PROC: B3201ZZ Computerized Tomography (CT Scan) of Thoracic Aorta using Low Osmolar Contrast (ICD-10-PCS; 2022-04-08)
PROC: B32S1ZZ Computerized Tomography (CT Scan) of Right Pulmonary Artery using Low Osmolar Contrast (ICD-10-PCS; 2022-04-08)
PROC: 0W9G3ZZ Drainage of Peritoneal Cavity, Percutaneous Approach (ICD-10-PCS; principal; 2022-04-09)
DX: K76.9 Liver disease, unspecified (principal); I50.23 Acute on chronic systolic (congestive) heart failure; R18.8 Other ascites; D68.4 Acquired coagulation factor deficiency; E87.1 Hypo-osmolality and hyponatremia; I42.7 Cardiomyopathy due to drug and external agent; N17.9 Acute kidney failure, unspecified; K72.10 Chronic hepatic failure without coma; K72.90 Hepatic failure, unspecified without coma; D64.9 Anemia, unspecified; E11.22 Type 2 diabetes mellitus with diabetic chronic kidney disease; E11.65 Type 2 diabetes mellitus with hyperglycemia; E66.9 Obesity, unspecified; E88.09 Other disorders of plasma-protein metabolism, not elsewhere classified; F17.210 Nicotine dependence, cigarettes, uncomplicated; I27.20 Pulmonary hypertension, unspecified; L30.9 Dermatitis, unspecified; N18.9 Chronic kidney disease, unspecified; Z56.0 Unemployment, unspecified; Z79.84 Long term (current) use of oral hypoglycemic drugs; Z68.33 Body mass index [BMI] 33.0-33.9, adult; Z86.79 Personal history of other diseases of the circulatory system; Z91.14 Patient's other noncompliance with medication regimen; Z91.19 Patient's noncompliance with other medical treatment and regimen; Z79.899 Other long term (current) drug therapy; Z79.82 Long term (current) use of aspirin; Z71.6 Tobacco abuse counseling
CPT/HCPCS: 36415; 49083; 71045; 71275; 80053; 80305; 80320; 81001; 82140; 83735; 83880; 84100; 84484; 85008; 85025; 85379; 85610; 85651; 85730; 86140; 87081; 93005; 96374; 99285; G0378; J1644; J1940; J3490; J7030; P9047; Q9967

== ENCOUNTER 2022-04-26 12:53 | Inpatient (IN) | payer BC, MEDICAID ==
[~2022-04-26] VITALS: Ht 170.2 cm; Wt 120.0 kg
[~2022-04-26 12:53] MED LIST changes: +EMPA10TA PO; +METO-384 PO; +PETR113O TP; +SACU1TAB PO; -Vitamins A And D TP
[2022-04-26] MEDS ORDERED: ondansetron/PF 4mg/2ml inj IV ONE (13:50)
[2022-04-26] MEDS ORDERED: pantoprazole 40MG/NS 100ML BAG 100 ML IV ONE ×3 (13:50→13:55)
[2022-04-26] MEDS ORDERED: pantoprazole IV 80 MG in normal saline 100ml IV soln 100 ML IV ONE (13:50)
[2022-04-26 15:28] LABS: BASOPHILS % (AUTO) 0.3 % (0-1); EOSINOPHILS % (AUTO) 0.2 % (0-6); HEMATOCRIT 27.4 % (42.0-52.0); LYMPHOCYTES # (AUTO) 1.3 X10'3 (1.1-4.8); LYMPHOCYTES % (AUTO) 12.9 % (21-51); MEAN CORPUSCULAR HGB CONC 32.9 g/dL (33.0-36.5); MEAN CORPUSCULAR VOLUME 100.2 FL (78-98); MEAN PLATELET VOLUME 8.6 FL (7.4-10.4); MONOCYTES # (AUTO) 0.4 X10'3 (0-0.9); MONOCYTES % (AUTO) 3.8 % (2-12); NEUTROPHILS # (AUTO) 8.4 X10'3 (1.8-7.7); NEUTROPHILS % (AUTO) 82.8 % (42-75); PLATELET COUNT 179 X10'3 (140-440); RED BLOOD COUNT 2.74 X10'6 (4.70-6.10); RED CELL DISTRIBUTION WIDTH 20.6 % (11.5-14.5); WHITE BLOOD COUNT 10.2 X10'3 (4.5-11.0)
[2022-04-26 15:33] LABS: APTT 39 SECONDS (22-32)
[2022-04-26] MEDS ORDERED: LIDOcaine 1% w/EPI 1:100,000 30ml vial (MDV) IJ ONE (15:40)
[2022-04-26 15:45] LABS: ALANINE AMINOTRANSFERASE 17 U/L (12-78); ALBUMIN 1.5 G/DL (3.4-5.0); ALBUMIN/GLOBULIN RATIO 0.3 (1.1-1.5); ALKALINE PHOSPHATASE 76 IU/L (46-116); ANION GAP 9 (8-16); ASPARTATE AMINO TRANSFERASE 56 U/L (10-37); BILIRUBIN,TOTAL 1.8 MG/DL (0.1-1.0); BLOOD UREA NITROGEN 42 MG/DL (7-18); BUN/CREATININE RATIO 32.6 (5.4-32.0); CALCIUM 8.1 MG/DL (8.5-10.1); CHLORIDE 101 MMOL/L (99-107); CREATININE 1.29 MG/DL (0.60-1.10); GLUCOSE 105 MG/DL (70-104); MAGNESIUM 1.8 MG/DL (1.5-2.4); SODIUM 136 MMOL/L (135-145); TOTAL CARBON DIOXIDE 25.6 MMOL/L (24-32); TOTAL PROTEIN 6.6 G/DL (6.4-8.2); eGFR 67 ML/MIN
[2022-04-26 15:50] LABS: ANISOCYTOSIS 3+; PLATELET ESTIMATE NORMAL
[2022-04-26] MEDS ORDERED: ondansetron/PF 4mg/2ml inj IV PRN (17:10)
[2022-04-26] MEDS ORDERED: magnesium hydroxide 30ml (MOM) UD suspension PO PRN (17:10)
[2022-04-26] MEDS ORDERED: HYDROcodone/acetaminophen 10/325mg tab PO PRN (17:10)
[2022-04-26] MEDS ORDERED: metoclopramide 5 mg/ml inj IV PRN (17:10)
[2022-04-26] MEDS ORDERED: acetaminophen 325mg tablet PO PRN ×2 (17:10)
[2022-04-26] MEDS ORDERED: mag hydrox/Alum hydrox/simeth 30ml oral suspension PO PRN (17:10)
[2022-04-26] MEDS ORDERED: morphine 2 MG/ML inj. syringe IV PRN ×2 (17:10)
[2022-04-26] MEDS ORDERED: HYDROcodone/acetaminophen 5mg/325mg tablet PO PRN (17:10)
[2022-04-26] MEDS ORDERED: docusate sod 100mg capsule PO SCH (20:00)
--- NOTE | 2022-04-26 21:55 | NUR ---
PATIENT HAS VERBALIZED DESIRE TO LEAVE AMA, DESPITE ROOM ASSIGNMENT. DR. DILLARD NOTIFIED OF PATIENT LEAVING AMA.
[2022-04-26 22:00] VITALS: BP 92/69
--- NOTE | 2022-04-26 23:02 | NUR ---
Pt voicing that he wants to leave AMA. notified and came to bedside to discuss reasons for admission. Pt continued to resfuse admission and requesting to leave immediatly. Pt, MD and RN signed AMA forms. pulled abd cath and dressed incision. Pt wheeled out with mother.
--- NOTE | 2022-04-26 23:09 | NUR ---
In total pulled 6 L off via paracentesis. VSS.
== END 2022-04-26 23:00 | disposition left against medical advice (07) | DRG 378 ==
LOC: ER 12:54 → UNDOADMIN 17:12 → ED HOLD 17:12 → PCU 3S 21:17 → ED HOLD 21:17 → PCU 3S 21:30 → UNDODISIN 23:00
PROVIDERS: ADMIT Internal Medicine; ATTEND Internal Medicine
PROC: 0W9G3ZX Drainage of Peritoneal Cavity, Percutaneous Approach, Diagnostic (ICD-10-PCS; principal; 2022-04-26)
DX: K92.2 Gastrointestinal hemorrhage, unspecified (principal); I50.22 Chronic systolic (congestive) heart failure; R18.8 Other ascites; Z68.41 Body mass index [BMI] 40.0-44.9, adult; K92.0 Hematemesis; D53.9 Nutritional anemia, unspecified; E66.01 Morbid (severe) obesity due to excess calories; E11.22 Type 2 diabetes mellitus with diabetic chronic kidney disease; F15.90 Other stimulant use, unspecified, uncomplicated; F11.10 Opioid abuse, uncomplicated; Z53.29 Procedure and treatment not carried out because of patient's decision for other reasons; K72.10 Chronic hepatic failure without coma; K74.60 Unspecified cirrhosis of liver; N18.9 Chronic kidney disease, unspecified; G89.29 Other chronic pain; Z56.0 Unemployment, unspecified
CPT/HCPCS: 36415; 80053; 82140; 83605; 83735; 83880; 84145; 85008; 85025; 85610; 85730; 86885; 86900; 86901; 87040; 93005; 96365; 96375; 99291; A6253; A6449; C9113; G0378; J2405